=== PATIENT | female | born 1950 | race African-American/Black ===

== ENCOUNTER 2017-08-04 15:17 | Emergency (ER) | payer MEDICARE, MEDICAID ==
[~2017-08-04 15:17] MED LIST: Iopamidol 370 76% 100 ML VIAL ONE
[2017-08-04 16:11] LABS: Bacteria/HPF 4+ HPF (None Seen); Hyaline Casts/LPF 0-3 HYALINE CAST LPF (0-3 Hyaline); RBC/HPF None Seen HPF (0-3)
[2017-08-04 16:17] LABS: Bilirubin Negative (Negative); Blood, Urine Trace (Negative); Glucose, Urine (Dipstick) 250 mg/dL (Negative); Ketone, Urine Negative (Negative); Nitrite Positive (Negative); Protein, Urine (Dipstick) Trace mg/dL (Neg-Trace); Urobilinogen 0.2 mg/dL (0.2-1.0)
[2017-08-04 16:26] LABS: Yeast-All Forms None Seen HPF (None Seen)
[2017-08-04] MEDS ORDERED: Lidocaine Viscous Sol 2% 15 ml UD Cup ONE (16:41)
[2017-08-04] MEDS ORDERED: Mag-Al 1200 mg/1200 mg/30 ML UDCUP ONE (16:41)
[2017-08-04 17:35] LABS: #Eosinphils 0.2 thou/uL (0.0-0.7); #Lymphocytes 2.6 thou/uL (1.20-3.40); #Monocytes 0.5 thou/uL (0.11-0.59); #Neutrophils 4.7 thou/uL (1.40-6.50); %Basophils 0.3 % (0.0-1.0); %Eosinophils 2.1 % (0.0-10.0); %Lymphocytes 31.9 % (21.0-51.0); %Monocytes 6.8 % (0.0-10.0); Hematocrit 40.2 % (36.0-47.0); Mean Platelet Volume 7.8 fL (7.4-10.4); Red Blood Cell (RBC) Count 4.68 mill/uL (4.20-5.40)
[2017-08-04 18:00] LABS: ALT (SGPT) 11 U/L (8-55); AST (SGOT) 15 U/L (5-34); Alkaline Phosphatase 138 U/L (40-150); Anion Gap 12 mmol/L (10-20); BUN (Urea Nitrogen) 12 mg/dL (9.8-20.1); Bilirubin, Total 0.7 mg/dL (0.2-1.2); Calc. Creatinine Clearance 0 mL/min (70-130); Calcium 10.3 mg/dL (7.8-10.44); Carbon Dioxide 27 mmol/L (23-31); Chloride 98 mmol/L (98-107); Estimated GFR-MDRD 72; Globulin 4.4 g/dL (2.4-3.5); Lipase 152 U/L (8-78); Protein, Total 8.1 g/dL (6.0-8.3)
[2017-08-04 18:05] LABS: Troponin I 0.018 ng/mL (< 0.028)
--- NOTE | 2017-08-04 18:51 | CT ---
CT OF THE ABDOMEN AND PELVIS WITH IV CONTRAST 08/04/17 INDICATION: Abdominal pain. COMPARISON: Prior exam dated 07/17/16. FINDINGS: The gallbladder is surgically absent. The pancreas, adrenal glands, and kidneys appear within normal limits. Spleen is normal appearing. Th e bowel small bowel is nonobstructed. No free fluid is evident. The bladder, rectum, and perirectal s oft tissues are unremarkable. There is scattered diverticula involving the colon without reactive div erticulitis. There is scattered degenerative and osteoarthritic change. IMPRESSION: No definite acute abnormality seen. POS: [facility]
--- NOTE | 2017-08-31 13:26 | EKG ---
Test Reason : DIAGOSING PURPOSES Blood Pressure : / mmHG Vent. Rate : 087 BPM Atrial Rate : 087 BPM P-R Int : 000 ms QRS Dur : 088 ms QT Int : 376 ms P-R-T Axes : 036 022 071 degrees QTc Int : 452 ms Sinus rhythm with 1st degree A-V block with Premature supraventricular complexes Nonspecific ST and T wave abnormality Abnormal ECG Confirmed by BECKY ALEJANDRO ([id number]), pictures editor HERBERT WORKMAN ([id number]) on 08/31/2017 1:26:13 PM Referred By: Confirmed By:BECKY ALEJANDRO
== END 2017-08-04 19:47 | disposition home or self-care (01) ==
LOC: ERS 15:17
DX: R10.13 Epigastric pain (principal); R10.12 Left upper quadrant pain; R10.32 Left lower quadrant pain; I25.2 Old myocardial infarction; I11.0 Hypertensive heart disease with heart failure; I50.9 Heart failure, unspecified; E11.9 Type 2 diabetes mellitus without complications; E78.5 Hyperlipidemia, unspecified; Z87.891 Personal history of nicotine dependence; Z79.4 Long term (current) use of insulin; Z79.899 Other long term (current) drug therapy; Z79.82 Long term (current) use of aspirin
CPT/HCPCS: 36415; 74177; 80053; 81003; 81015; 82553; 83690; 84484; 85025; 87086; 93005; 96374; 96375; J0696

== ENCOUNTER 2017-09-21 05:04 | Emergency (ER) | payer MEDICARE, MEDICAID ==
[2017-09-21 06:07] LABS: #Eosinphils 0.1 thou/uL (0.0-0.7); #Lymphocytes 2.3 thou/uL (1.20-3.40); #Monocytes 0.7 thou/uL (0.11-0.59); #Neutrophils 5.1 thou/uL (1.40-6.50); %Basophils 0.2 % (0.0-1.0); %Eosinophils 1.6 % (0.0-10.0); %Lymphocytes 27.4 % (21.0-51.0); %Monocytes 8.6 % (0.0-10.0); %Neutrophils 62.2 % (42.0-75.0); Hemoglobin 10.7 g/dL (12.0-16.0); Mean Corpuscular HGB CONC 30.9 g/dL (32.0-36.0); Mean Corpuscular Hemoglobin 26.6 pg (27.0-31.0); Mean Corpuscular Volume 85.9 fl (81.0-99.0); Mean Platelet Volume 8.1 fL (7.4-10.4); Platelet Count 271 thou/uL (130-400); RBC Distribution Width 13.8 % (11.5-14.5); Red Blood Cell (RBC) Count 4.01 mill/uL (4.20-5.40); White Blood Cell (WBC) Count 8.2 thou/uL (4.8-10.8)
[2017-09-21] MEDS ORDERED: Meclizine HCl 25 MG TAB ONE (06:08)
[2017-09-21 06:42] LABS: ALT (SGPT) 10 U/L (8-55); AST (SGOT) 10 U/L (5-34); Albumin 3.7 g/dL (3.4-4.8); Alkaline Phosphatase 115 U/L (40-150); Anion Gap 14 mmol/L (10-20); BUN (Urea Nitrogen) 14 mg/dL (9.8-20.1); Bilirubin, Total 0.4 mg/dL (0.2-1.2); Calc. Creatinine Clearance 0 mL/min (70-130); Carbon Dioxide 28 mmol/L (23-31); Chloride 104 mmol/L (98-107); Estimated GFR-MDRD 81; Globulin 3.7 g/dL (2.4-3.5); Glucose 106 mg/dL (80-115); Potassium 3.6 mmol/L (3.5-5.1); Protein, Total 7.4 g/dL (6.0-8.3); Sodium 142 mmol/L (136-145)
[2017-09-21 06:45] LABS: CKMB 1.3 ng/mL (0-6.6); Troponin I 0.028 ng/mL (< 0.028)
== END 2017-09-21 07:36 | disposition home or self-care (01) ==
LOC: ERS 05:04
DX: I11.0 Hypertensive heart disease with heart failure (principal); I50.9 Heart failure, unspecified; H81.13 Benign paroxysmal vertigo, bilateral; I25.2 Old myocardial infarction; E11.9 Type 2 diabetes mellitus without complications; E78.5 Hyperlipidemia, unspecified; Z87.891 Personal history of nicotine dependence; Z79.82 Long term (current) use of aspirin; Z79.84 Long term (current) use of oral hypoglycemic drugs; Z79.899 Other long term (current) drug therapy
CPT/HCPCS: 36415; 36416; 80053; 82553; 83880; 84484; 85025; 93005

== ENCOUNTER 2017-10-15 13:53 | Outpatient (CLI) | payer MEDICARE, MEDICAID ==
--- NOTE | 2017-10-15 14:39 | RAD ---
CHEST TWO VIEWS: History: Fever. Wheezing. Comparison: 04-08-17 FINDINGS: Cardiac silhouette is enlarged. Pulmonary vasculature is engorged with bilateral perihilar infiltrate s. Mediastinum is midline with a single lead left subclavian cardiac defibrillator. No confluent airs pace consolidation, pneumothorax or pleural fluid is evident. IMPRESSION: Cardiomegaly with mild pulmonary vascular congestion. POS: [facility]
== END 2017-10-15 13:54 | disposition home or self-care (01) ==
LOC: RAD-FRANK 13:53
PROVIDERS: ATTEND Nurse Practitioner Family
DX: R50.9 Fever, unspecified (principal); I51.7 Cardiomegaly; R09.89 Other specified symptoms and signs involving the circulatory and respiratory systems
CPT/HCPCS: 71046

== ENCOUNTER 2017-10-19 18:54 | Emergency (ER) | payer MEDICARE, MEDICAID ==
[2017-10-19 19:52] LABS: #Basophils 0.1 thou/uL (0.0-0.2); #Eosinphils 0.2 thou/uL (0.0-0.7); #Lymphocytes 2.7 thou/uL (1.20-3.40); #Monocytes 0.6 thou/uL (0.11-0.59); %Basophils 0.9 % (0.0-1.0); %Eosinophils 2.1 % (0.0-10.0); %Monocytes 6.6 % (0.0-10.0); %Neutrophils 62.4 % (42.0-75.0); Mean Corpuscular Hemoglobin 27.7 pg (27.0-31.0); Mean Corpuscular Volume 86.6 fl (81.0-99.0); Mean Platelet Volume 8.7 fL (7.4-10.4); Platelet Count 279 thou/uL (130-400); RBC Distribution Width 13.9 % (11.5-14.5); Red Blood Cell (RBC) Count 4.33 mill/uL (4.20-5.40); White Blood Cell (WBC) Count 9.5 thou/uL (4.8-10.8)
[2017-10-19 20:14] LABS: ALT (SGPT) Less than 7 U/L (8-55); AST (SGOT) 12 U/L (5-34); Albumin 3.8 g/dL (3.4-4.8); Alkaline Phosphatase 103 U/L (40-150); Anion Gap 12 mmol/L (10-20); BUN (Urea Nitrogen) 22 mg/dL (9.8-20.1); Bilirubin, Total 0.4 mg/dL (0.2-1.2); CK (CPK) 265 U/L (29-168); Calc. Creatinine Clearance 0 mL/min (70-130); Calcium 9.8 mg/dL (7.8-10.44); Carbon Dioxide 29 mmol/L (23-31); Chloride 98 mmol/L (98-107); Estimated GFR-MDRD 59; Globulin 4.4 g/dL (2.4-3.5); Glucose 181 mg/dL (80-115); Lipase 26 U/L (8-78); Potassium 3.2 mmol/L (3.5-5.1); Protein, Total 8.2 g/dL (6.0-8.3); Sodium 136 mmol/L (136-145)
[2017-10-19 20:17] LABS: CKMB 0.8 ng/mL (0-6.6); Troponin I 0.022 ng/mL (< 0.028)
--- NOTE | 2017-10-19 20:29 | RAD ---
FRONTAL VIEW CHEST 10/19/17 COMPARISON: 10/15/17 INDICATION: Chest pain. FINDINGS: Enlarged cardiac silhouette present with pulmonary vascular congestion. No obvious effusion or discre te pneumothorax. Cardiac pacing device is again seen from a left subclavian approach. IMPRESSION: Prominent cardiac silhouette and pulmonary vasculature indicating CHF. Correlate clinically. POS: [facility]
[2017-10-19] MEDS ORDERED: Potassium Chloride 20 MEQ TAB ONE (21:03)
[2017-10-19] MEDS ORDERED: Diabetic Tussin 200 MG/10 ML UDCUP PO SCH (21:45)
--- NOTE | 2017-10-27 17:05 | EKG ---
Test Reason : Blood Pressure : / mmHG Vent. Rate : 088 BPM Atrial Rate : 088 BPM P-R Int : 224 ms QRS Dur : 090 ms QT Int : 402 ms P-R-T Axes : 043 048 122 degrees QTc Int : 486 ms Sinus rhythm with 1st degree A-V block with Premature atrial complexes with Abberant conduction Nonspecific ST and T wave abnormality Abnormal ECG Confirmed by SARWAT GARRETT D.O. ([id number]), avid editor HERBERT WORKMAN ([id number]) on 10/27/2017 5:04:17 PM Referred By: Confirmed By:SARWAT GARRETT D.O.
== END 2017-10-19 21:55 | disposition home or self-care (01) ==
LOC: ERS 18:54
DX: J40 Bronchitis, not specified as acute or chronic (principal); I25.2 Old myocardial infarction; E11.9 Type 2 diabetes mellitus without complications; E78.5 Hyperlipidemia, unspecified; I11.0 Hypertensive heart disease with heart failure; I50.9 Heart failure, unspecified; Z87.891 Personal history of nicotine dependence; Z79.82 Long term (current) use of aspirin; Z79.4 Long term (current) use of insulin; Z79.899 Other long term (current) drug therapy
CPT/HCPCS: 36415; 71045; 80053; 82553; 83690; 83880; 84484; 85025; 87804; 93005

== ENCOUNTER 2018-01-19 20:01 | Emergency (ER) | payer MEDICARE, MEDICAID ==
[2018-01-19] MEDS ORDERED: Ketorolac Tromethamine 30 MG/ML VIAL ONE (20:31)
== END 2018-01-19 20:36 | disposition home or self-care (01) ==
LOC: ERS 20:01
DX: M54.42 Lumbago with sciatica, left side (principal); M62.838 Other muscle spasm; I25.2 Old myocardial infarction; I11.0 Hypertensive heart disease with heart failure; I50.9 Heart failure, unspecified; E11.9 Type 2 diabetes mellitus without complications; E78.5 Hyperlipidemia, unspecified; Z87.891 Personal history of nicotine dependence; Z79.82 Long term (current) use of aspirin; Z79.4 Long term (current) use of insulin; Z79.899 Other long term (current) drug therapy
CPT/HCPCS: 96372; J1885

== ENCOUNTER 2018-06-12 19:24 | Inpatient (IN) | payer MEDICARE, MEDICAID ==
[~2018-06-12 19:24] MED LIST changes: +ISOVUE-370 76%-LOCM 1 ML ONE; -Iopamidol 370 76% 100 ML VIAL ONE
[2018-06-12 20:38] LABS: ALT (SGPT) 10 U/L (8-55); AST (SGOT) 15 U/L (5-34); Albumin 3.9 g/dL (3.4-4.8); Alkaline Phosphatase 115 U/L (40-150); Anion Gap 15 mmol/L (10-20); BUN (Urea Nitrogen) 21 mg/dL (9.8-20.1); Bilirubin, Total 0.6 mg/dL (0.2-1.2); CK (CPK) 110 U/L (29-168); Calc. Creatinine Clearance 0 mL/min (70-130); Calcium 9.6 mg/dL (7.8-10.44); Carbon Dioxide 24 mmol/L (23-31); Chloride 104 mmol/L (98-107); Estimated GFR-MDRD 51; Globulin 3.6 g/dL (2.4-3.5); Glucose 185 mg/dL (80-115); Lipase 29 U/L (8-78); Potassium 3.7 mmol/L (3.5-5.1); Protein, Total 7.5 g/dL (6.0-8.3); Sodium 139 mmol/L (136-145)
[2018-06-12 20:41] LABS: CKMB 1.5 ng/mL (0-6.6); Troponin I Less than 0.010 ng/mL (< 0.028)
--- NOTE | 2018-06-12 20:44 | RAD ---
PORTABLE CHEST ONE VIEW: 06/12/18 at 8:30 p.m. HISTORY: Dyspnea. FINDINGS: Comparison made with exam of 10/19/17. Left sided AICD remains in place. The heart is enlarged. There is pulmonary vascular congestion. No lobar consolidation, pneumothoraces or large effusions are seen. IMPRESSION: Mild CHF. POS: [facility]
[2018-06-12] MEDS ORDERED: Furosemide 40 MG/4 ML VIAL ONE (21:09)
[2018-06-12] MEDS ORDERED: Nitroglycerin 2% Ointment 1 INCH/1 GM Packet ONE (21:09)
--- NOTE | 2018-06-12 23:13 | CT ---
CTA CHEST WITH CONTRAST: 06/12/18 Multiple axial tomograms are obtained through the chest with IV enhancement following pulmonary angio protocol with multiplanar reconstructions and 3D postprocessing. INDICATIONS: Shortness of breath, dyspnea. FINDINGS: The pulmonary arteries show adequate enhancement. There is no evidence of pulmonary embolus. The lung cole are well aerated and clear. No infiltrate identified. The mediastinum unremarkable with no ad enopathy seen. Images through upper abdomen unremarkable. IMPRESSION: 1. No evidence of pulmonary embolus. 2. No acute lung process. POS: [facility]
[2018-06-13] MEDS ORDERED: Nitroglycerin 2% Ointment 1 INCH/1 GM Packet TOP SCH (00:30)
[2018-06-13 02:18] VITALS: BMI 46.6
[2018-06-13] MEDS ORDERED: Dextrose 50% Abboject 50 ML SYRINGE SLOW IVP PRN (02:59)
[2018-06-13] MEDS ORDERED: Acetaminophen 325 MG TAB PO PRN (02:59)
[2018-06-13] MEDS ORDERED: Dextrose 5% in Water 1,000 ML IV PRN (02:59)
[2018-06-13] MEDS ORDERED: Ondansetron HCl/PF 4 MG/2 ML Vial IVP PRN (02:59)
[2018-06-13 05:17] LABS: #Basophils 0.1 thou/uL (0.0-0.2); #Eosinphils 0.3 thou/uL (0.0-0.7); #Lymphocytes 3.1 thou/uL (1.20-3.40); #Monocytes 0.7 thou/uL (0.11-0.59); #Neutrophils 4.6 thou/uL (1.40-6.50); %Basophils 0.6 % (0.0-1.0); %Lymphocytes 35.6 % (21.0-51.0); %Monocytes 7.7 % (0.0-10.0); %Neutrophils 53.1 % (42.0-75.0); Hemoglobin 10.1 g/dL (12.0-16.0); Mean Corpuscular HGB CONC 31.7 g/dL (32.0-36.0); Mean Corpuscular Hemoglobin 26.8 pg (27.0-31.0); Mean Corpuscular Volume 84.6 fL (78.0-98.0); Mean Platelet Volume 9.5 fL (7.4-10.4); Platelet Count 231 thou/uL (130-400); RBC Distribution Width 15.3 % (11.5-14.5); Red Blood Cell (RBC) Count 3.78 mill/uL (4.20-5.40); White Blood Cell (WBC) Count 8.6 thou/uL (4.8-10.8)
[2018-06-13 05:33] LABS: Anion Gap 14 mmol/L (10-20); BUN (Urea Nitrogen) 20 mg/dL (9.8-20.1); Calc. Creatinine Clearance 86 mL/min (70-130); Calcium 9.7 mg/dL (7.8-10.44); Carbon Dioxide 24 mmol/L (23-31); Chloride 104 mmol/L (98-107); Estimated GFR-MDRD 56; Glucose 156 mg/dL (80-115); Potassium 3.3 mmol/L (3.5-5.1); Sodium 139 mmol/L (136-145)
[2018-06-13] MEDS: Furosemide 40 MG/4 ML VIAL SLOW IVP SCH ×2 (05:58→14:15)
[2018-06-13] MEDS ORDERED: hydrALAZINE 20 MG/ML VIAL SLOW IVP PRN (07:19)
[2018-06-13] MEDS ORDERED: Loratadine 10 MG TAB PO PRN (07:19)
[2018-06-13] MEDS ORDERED: Chloraseptic Spray 180 ml Bottle PO PRN (07:19)
[2018-06-13] MEDS ORDERED: Mag-Al 1200 mg/1200 mg/30 ML UDCUP PO PRN (07:19)
[2018-06-13] MEDS ORDERED: Artificial Tears 18 DROP/0.9 ML EA EYE PRN (07:19)
[2018-06-13] MEDS ORDERED: Sodium Chloride 0.65% Nasal 44 ML BOT EA NARE PRN (07:19)
[2018-06-13] MEDS ORDERED: Temazepam 15 MG CAP PO PRN (07:19)
[2018-06-13] MEDS ORDERED: Eucerin (Mineral Oil/Petrolatum,White) 30 gm Jar TOP PRN (07:19)
[2018-06-13] MEDS ORDERED: Milk Of Magnesia 30 ML UDCUP PO PRN (07:19)
[2018-06-13] MEDS ORDERED: Ondansetron ODT 4 MG TAB PO PRN (07:19)
[2018-06-13] MEDS ORDERED: Loperamide HCl 2 MG CAP PO PRN (07:19)
[2018-06-13] MEDS ORDERED: Senokot 8.6 MG TAB PO PRN (07:19)
[2018-06-13] MEDS ORDERED: Diabetic Tussin 200 MG/10 ML UDCUP PO PRN (07:19)
[2018-06-13] MEDS ORDERED: HYDROcodone/Acetaminophen 5/325 mg Tablet PO PRN (07:19)
[2018-06-13] MEDS ORDERED: Nitroglycerin 0.4 MG TAB (25 Tab Bottle) SL PRN (07:19)
--- NOTE | 2018-06-13 07:40 | HP ---
PRIMARY CARE PHYSICIAN: Fadumo and Yakelin. CODE STATUS: FULL CODE. TIME OF EVALUATION: 11:55 p.m. CHIEF COMPLAINT: Congestion and shortness of breath. HISTORY OF PRESENT ILLNESS: This is a 67-year-old female patient with past medical history of pacema ker, coronary artery disease status post [place], congestive heart failure, diabetes, hyperlipidemia. The patient came to the hospital after having an episode of shortness of breath that has been gradually getting worse over the past 2 weeks reported as moderate, there is shortness of breath and gets worse with exertion, and improved with resting. The patient reported having some episode of PND overnight . The patient also has associated lower extremity edema. REVIEW OF SYSTEMS: CONSTITUTIONAL: No fever or chills or generalized weakness. RESPIRATORY: No cough, patient has shortness of breath. No sputum production. CARDIOVASCULAR: No chest pain or palpitations. GASTROINTESTINAL: No nausea, no vomiting, diarrhea or abdominal pain. 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 GENITOURINARY: No burning with urination. EXTREMITIES: The patient has bilateral leg swelling. All other systems were reviewed and negative except for the findings mentioned above. PAST MEDICAL HISTORY: As mentioned in the HPI. PAST SURGICAL HISTORY: 1. Excision of lymph nodes in the neck 2. Cholecystectomy. 3. Hysterectomy. PSYCHIATRIC HISTORY: No previous psychiatric history. SOCIAL HISTORY: Former tobacco smoker, quit more than 10 years ago. No drugs. Lives at home with odessa andrade. FAMILY HISTORY: Reviewed and noncontributory for this admission. ALLERGIES: WATERMELON. MEDICATIONS: Spironolactone, potassium chloride, torsemide, Meloxicam, glimepiride, Crestor. PHYSICAL EXAMINATION: VITAL SIGNS: On presentation, blood pressure 126/65 with heart rate 71, respiratory rate was 20, tem perature 97.9, oxygen saturation 98. GENERAL APPEARANCE: She is alert with generalized weakness. No acute distress. HEENT: Eyes; normal conjunctivae. Moist oral mucosa. Anicteric. NECK: No JVD. RESPIRATORY: Bilateral air entry. Some crackles bilaterally, no wheezing. Symmetric expansion. CARDIOVASCULAR: Normal rate, regular rhythm. No murmurs, no gallop. Bilateral leg edema. ABDOMEN: Soft, normal bowel sounds. MUSCULOSKELETAL: Baseline range of motion and strength. No tenderness. SKIN: Warm and intact, no pallor, no rash, no redness except for atrophic changes bilateral lower ex tremity due to chronic lymphedema. Peripheral pulses are present. Capillary refill seems to be inta ct. NEUROLOGIC: Baseline sensory. No evidence of any new focal weakness. PSYCHIATRIC: The patient is in good mood. No anxiety. Optimal judgment. EKG was discussed with performing physician from ER. The patient has normal sinus rhythm with a rate of 67 with low voltage QRS and prolonged QT. No specific ST-T wave changes. Chest x-ray: Pulmonar y congestion, AICD was seen in place. CT angio was done due to positive D-dimer and was negative for PE. LABORATORY: White count 8.6, hemoglobin 10.1, platelet count 231. D-dimer 0.9, sodium 139, potassiu m 3.3, chloride 104, carbon dioxide 24, anion gap 14, BUN 20, creatinine 1.17, glucose 185, came down to 156. Beta natriuretic peptide 1208. Lipase 29. ASSESSMENT AND PLAN: The patient will be placed in the hospital for the following medical problems: 1. Congestive heart failure exacerbation. The patient has beta natriuretic peptide 1208, bilateral leg edema, exertional dyspnea and episodes of paroxysmal nocturnal dyspnea overnight, the patient roc l receive diuresis, reconcile home medications. Monitor on tele. 2. Positive D-dimer, this is unclear why it is high, the CT angio was negative for any pulmonary emb olism. 3. Chronic kidney disease. It is stage 3 with GFR of 51, will monitor kidney function. We will adj ust treatment as needed. Might be cardiorenal, the patient will need diuresis. 4. Chronic normocytic anemia with hemoglobin 10.0, previously 12, will monitor. No need for acute i ntervention at this point. 5. Controlled diabetes, we will reconcile home meds, sliding scale for optimal control. 6. Uncontrolled high blood pressure with recorded systolic blood pressure 151 in our records, will r econcile home meds, will adjust treatment as needed. 7. History of coronary artery disease. We will reconcile medications, this problem seems to be stab le at this time. . 8. Hyperlipidemia, reconcile home meds, low cholesterol diet is advised. 9. Deep venous thrombosis prophylaxis.
[2018-06-13] MEDS ORDERED: Meloxicam 15 MG TAB PO SCH (09:00)
[2018-06-13] MEDS ORDERED: Potassium Chloride 20 MEQ TAB PO SCH (09:00)
[2018-06-13] MEDS ORDERED: Prevnar 13-Val Conj/PF 0.5 ML SYRINGE IM ONE (09:00)
[2018-06-13] MEDS ORDERED: Torsemide 20 MG TAB PO SCH (09:00)
--- NOTE | 2018-06-13 09:28 | PDOC.PN ---
- Subjective Encounter Start Date: 06/13/18 Encounter Start Time: 07:20 Patient seen and examined. less dyspnea, feels better now, No overnight events - Objective Resuscitation Status: Resuscitation Status FULL:Full Resuscitation MAR Reviewed: Yes Vital Signs & Weight: Vital Signs (12 hours) Temp Pulse Resp BP BP BP Pulse Ox 06/13/18 07:20 97.9 F 57 L 14 126/61 97 06/13/18 04:00 97.8 F 71 22 H 125/61 93 L 06/13/18 00:35 96.5 F L 67 20 139/66 99 Weight Weight 255 lb 3.2 oz I&O: 06/12/18 06/13/18 06/14/18 06:59 06:59 06:59 Intake Total 0 Output Total 700 Balance -700 Result Diagrams: 06/13/18 04:44 06/13/18 04:44 Additional Labs: Accuchecks 06/13/18 05:51 POC Glucose 161 H Radiology Reviewed by me: Yes (chest xray, CT angio reviewed) EKG Reviewed by me: Yes Phys Exam - Physical Examination Constitutional: NAD HEENT: PERRLA, moist MMs, sclera anicteric Neck: no JVD, supple Respiratory: no wheezing, no rhonchi few basal rales+ Cardiovascular: RRR, no significant murmur, no rub Gastrointestinal: soft, non-tender, no distention, positive bowel sounds obesity+ Musculoskeletal: pulses present, edema present chronic skin changes both leg Neurological: non-focal, normal sensation, moves all 4 limbs Lymphatic: no nodes Psychiatric: normal affect, A&O x 3 Skin: normal turgor Dx/Plan (1) Acute on chronic systolic ACC/AHA stage C congestive heart failure Code(s): I50.23 - ACUTE ON CHRONIC SYSTOLIC (CONGESTIVE) HEART FAILURE Status : Acute Comment: EF 20-15% (2) Anemia, normocytic normochromic Code(s): D64.9 - ANEMIA, UNSPECIFIED Status: Chronic (3) CAD (coronary artery disease) Code(s): I25.10 - ATHSCL HEART DISEASE OF [place] CORONARY ARTERY W/O ANG PCTRS Status: Chronic Comment: (4) Cardiomyopathy Code(s): I42.9 - CARDIOMYOPATHY, UNSPECIFIED Status: Chronic Qualifiers: Cardiomyopathy type: ischemic Qualified Code(s): I25.5 - Ischemic cardiomyopathy Comment: AICD in place (5) DM type 2 (diabetes mellitus, type 2) Status: Chronic Qualifiers: Diabetes mellitus complication status: with hyperglycemia Comment: (6) HTN (hypertension) Code(s): I10 - ESSENTIAL (PRIMARY) HYPERTENSION Status: Chronic Comment: (7) Hyperlipidemia Code(s): E78.5 - HYPERLIPIDEMIA, UNSPECIFIED Status: Chronic (8) Morbid obesity with BMI of 45.0-49.9, adult Code(s): E66.01 - MORBID (SEVERE) OBESITY DUE TO EXCESS CALORIES; Z68.42 - BODY MASS INDEX (BMI) 45.0-49.9, ADULT Status: Chronic - Plan cont current plan of care * continue diuresis * replace potassium * monitor weight and I/O, daily labs * medication reviewed as below * symptomatic treatment. Review of Systems - Review of Systems Constitutional: negative: fever, chills, sweats, weakness, malaise, other Eyes: negative: Pain, Vision Change, Conjunctivae Inflammation, Eyelid Inflammation, Redness, Other Respiratory: SOB with Excertion. negative: Cough, Dry, Shortness of Breath, Hemoptysis, Pleuritic Pain, Sputum, Wheezing Cardiovascular: orthopnea, edema. negative: chest pain, palpitations, paroxysmal nocturnal dyspnea, light headedness, other Gastrointestinal: negative: Nausea, Vomiting, Abdominal Pain, Diarrhea, Constipation, Melena, Hematochezia, Other Genitourinary: negative: Dysuria, Frequency, Incontinence, Hematuria, Retention , Other Musculoskeletal: negative: Neck Pain, Shoulder Pain, Arm Pain, Back Pain, Hand Pain, Leg Pain, Foot Pain, Other Skin: negative: Rash, Lesions, Maxi, Bruising, Other - Medications/Allergies Allergies/Adverse Reactions: Allergies Allergy/AdvReac Type Severity Reaction Status Date / Time melon Allergy Verified 06/13/18 00:48 watermelon Allergy Verified 06/13/18 00:48 Medications: Current Medications Acetaminophen (Tylenol) 650 mg PO Q4H PRN PRN Reason: Headache/Fever/Mild Pain (1-3) Hydrocodone Bitart/Acetaminophen ([place] 5/325) 1 tab PO Q4H PRN PRN Reason: Moderate Pain (4-6) Al Hydroxide/Mg Hydroxide (Maalox) 15 ml PO Q4H PRN PRN Reason: Heartburn or Indigestion Artificial Tears (Tears Naturale) 0 drop EA EYE PRN PRN PRN Reason: Dry Eyes Aspirin (Ecotrin) 81 mg PO DAILY [facility] Carvedilol (Coreg) 25 mg PO BID [facility] Dextrose/Water (Dextrose 50%) 25 gm SLOW IVP PRN PRN PRN Reason: Hypoglycemia Enoxaparin Sodium (Lovenox) 40 mg SC 0900 [facility] Famotidine (Pepcid) 20 mg PO BID [facility] Furosemide (Lasix) 40 mg SLOW IVP 0600,1400 [facility] Stop: 06/17/18 11:00 Last Admin: 06/13/18 05:58 Dose: 40 mg Glucagon (Glucagon) 1 mg IM PRN PRN PRN Reason: Hypoglycemia Guaifenesin (Robitussin Sf) 200 mg PO Q4H PRN PRN Reason: Cough Hydralazine HCl (Apresoline) 10 mg SLOW IVP Q4H PRN PRN Reason: Systolic BP > 180 Dextrose/Water (D5w) 1,000 mls @ 0 mls/hr IV .Q0M PRN PRN Reason: Hypoglycemia Insulin Human Isoph/Insulin Regular (Humulin 70/30) 30 units SC QPM [facility] Insulin Human Isoph/Insulin Regular (Humulin 70/30) 30 units SC QAM [facility] Insulin Human Lispro (Humalog) 0 units SC .MILD SLIDING SCALE PRN PRN Reason: Mild Correctional Scale Lisinopril (Zestril) 20 mg PO DAILY [facility] Loperamide HCl (Imodium) 2 mg PO PRN PRN PRN Reason: Diarrhea/Loose Stools Loratadine (Claritin) 10 mg PO DAILYPRN PRN PRN Reason: Sinus Symptoms Magnesium Hydroxide (Milk Of Magnesium) 30 ml PO DAILYPRN PRN PRN Reason: Constipation Mineral Oil/White Petrolatum (Eucerin Cream) 0 gm TOP BIDPRN PRN PRN Reason: Dry Skin Nitroglycerin (Nitrostat) 0.4 mg SL Q5MIN PRN PRN Reason: Chest Pain Ondansetron HCl (Zofran) 4 mg IVP Q6H PRN PRN Reason: Nausea/Vomiting Ondansetron HCl (Zofran Odt) 4 mg PO Q6H PRN PRN Reason: Nausea/Vomiting Phenol (Chloraseptic [place] 180 Ml Bot) 0 ml PO PRN PRN PRN Reason: Sore Throat Potassium Chloride (Klor-Con 10) 10 meq PO BID-[facility] Potassium Chloride (K-Dur) 40 meq PO NOW [facility] Stop: 06/13/18 12:00 Rosuvastatin Calcium (Crestor) 40 mg PO DAILY [facility] Senna (Senokot) 2 tab PO HSPRN PRN PRN Reason: Constipation Sodium Chloride (Flush - Normal Saline) 10 ml IVF PRN PRN PRN Reason: Saline Flush Sodium Chloride ([place] Nasal [place] 0.65%) 0 ml EA NARE QIDPRN PRN PRN Reason: Nasal Congestion Spironolactone (Aldactone) 25 mg PO DAILY [facility] Temazepam (Restoril) 15 mg PO HSPRN PRN PRN Reason: Insomnia
[2018-06-13] MEDS: Insulin NPH/Reg Insulin Hm 300 UNITS/3 ML VIAL SC SCH ×2 (09:32→21:58)
[2018-06-13] MEDS: Lisinopril 20 MG TAB PO SCH (09:37)
[2018-06-13] MEDS: Rosuvastatin 20 MG TAB PO SCH (09:37)
[2018-06-13] MEDS: Enoxaparin Sodium 40 MG/0.4 ML SYRINGE SC SCH (09:40)
[2018-06-13] MEDS: Carvedilol 25 MG TAB PO SCH ×2 (09:40→21:54)
[2018-06-13] MEDS: Spironolactone 25 MG TAB PO SCH (09:40)
[2018-06-13] MEDS: Aspirin 81 mg Enteric Coated Tablet PO SCH (09:40)
[2018-06-13] MEDS: Famotidine 20 MG TAB PO SCH ×2 (09:40→21:58)
[2018-06-13] MEDS: Potassium Chloride 10 MEQ TAB PO SCH ×2 (09:40→17:05)
[2018-06-13] MEDS: HumaLOG 300 UNITS/3 ML VIAL SC PRN ×2 (11:42→17:05)
[2018-06-14] MEDS: Aspirin 81 mg Enteric Coated Tablet PO SCH (11:30)
[2018-06-14] MEDS: Furosemide 40 MG/4 ML VIAL SLOW IVP SCH (11:30)
[2018-06-14] MEDS: Famotidine 20 MG TAB PO SCH ×2 (11:31→20:38)
[2018-06-14] MEDS: Insulin NPH/Reg Insulin Hm 300 UNITS/3 ML VIAL SC SCH ×2 (11:31→20:41)
[2018-06-14] MEDS: Lisinopril 20 MG TAB PO SCH (11:31)
[2018-06-14] MEDS: Rosuvastatin 20 MG TAB PO SCH (11:31)
[2018-06-14] MEDS: Carvedilol 25 MG TAB PO SCH ×2 (11:31→20:39)
[2018-06-14] MEDS: Spironolactone 25 MG TAB PO SCH (11:32)
[2018-06-14] MEDS: Potassium Chloride 10 MEQ TAB PO SCH ×2 (11:33→18:08)
[2018-06-14] MEDS: Enoxaparin Sodium 40 MG/0.4 ML SYRINGE SC SCH (11:33)
[2018-06-14 12:33] LABS: Anion Gap 13 mmol/L (10-20); BUN (Urea Nitrogen) 22 mg/dL (9.8-20.1); Calc. Creatinine Clearance 79 mL/min (70-130); Calcium 9.7 mg/dL (7.8-10.44); Carbon Dioxide 27 mmol/L (23-31); Chloride 104 mmol/L (98-107); Estimated GFR-MDRD 50; Glucose 62 mg/dL (80-115); Potassium 3.4 mmol/L (3.5-5.1); Sodium 141 mmol/L (136-145); Uric Acid 7.9 mg/dL (2.6-6.0)
--- NOTE | 2018-06-14 14:41 | PDOC.PN ---
- Subjective Encounter Start Date: 06/14/18 Encounter Start Time: 08:30 -: old records requested/rev Patient seen and examined. No new complaints. No overnight events - Objective Resuscitation Status: Resuscitation Status FULL:Full Resuscitation MAR Reviewed: Yes Vital Signs & Weight: Vital Signs (12 hours) Temp Pulse Pulse Pulse Resp BP BP 06/14/18 11:35 98 F 60 18 06/14/18 11:31 134/68 06/14/18 10:59 65 83 134/63 BP BP Pulse Ox Pulse Ox Pulse Ox 06/14/18 11:35 119/58 L 98 06/14/18 11:31 06/14/18 10:59 134/64 96 97 Weight Weight 255 lb 3.2 oz I&O: 06/13/18 06/14/18 06/15/18 06:59 06:59 06:59 Intake Total 0 1120 Output Total 700 1700 Balance -700 -580 Result Diagrams: 06/13/18 04:44 06/14/18 05:13 Additional Labs: Accuchecks 06/13/18 06/13/18 20:18 16:09 POC Glucose 134 H 161 H EKG Reviewed by me: Yes Phys Exam - Physical Examination Constitutional: NAD HEENT: PERRLA, moist MMs, sclera anicteric Neck: no JVD, supple Respiratory: no wheezing, no rales, no rhonchi Cardiovascular: RRR, no significant murmur, no rub Gastrointestinal: soft, non-tender, no distention, positive bowel sounds Musculoskeletal: pulses present, edema present Neurological: non-focal, normal sensation, moves all 4 limbs Psychiatric: normal affect, A&O x 3 Skin: no rash, normal turgor Dx/Plan (1) Acute on chronic systolic ACC/AHA stage C congestive heart failure Code(s): I50.23 - ACUTE ON CHRONIC SYSTOLIC (CONGESTIVE) HEART FAILURE Status : Acute Comment: EF 20-15% (2) Anemia, normocytic normochromic Code(s): D64.9 - ANEMIA, UNSPECIFIED Status: Chronic (3) CAD (coronary artery disease) Code(s): I25.10 - ATHSCL HEART DISEASE OF [place] CORONARY ARTERY W/O ANG PCTRS Status: Chronic Comment: (4) Cardiomyopathy Code(s): I42.9 - CARDIOMYOPATHY, UNSPECIFIED Status: Chronic Qualifiers: Cardiomyopathy type: ischemic Qualified Code(s): I25.5 - Ischemic cardiomyopathy Comment: AICD in place (5) DM type 2 (diabetes mellitus, type 2) Status: Chronic Qualifiers: Diabetes mellitus complication status: with hyperglycemia Comment: (6) HTN (hypertension) Code(s): I10 - ESSENTIAL (PRIMARY) HYPERTENSION Status: Chronic Comment: (7) Hyperlipidemia Code(s): E78.5 - HYPERLIPIDEMIA, UNSPECIFIED Status: Chronic (8) Morbid obesity with BMI of 45.0-49.9, adult Code(s): E66.01 - MORBID (SEVERE) OBESITY DUE TO EXCESS CALORIES; Z68.42 - BODY MASS INDEX (BMI) 45.0-49.9, ADULT Status: Chronic (9) Hypokalemia Code(s): E87.6 - HYPOKALEMIA Status: Acute - Plan cont current plan of care * replace potassium * reduce lasix 40 mg IV daily * echo pending result * medication reviewed as below * symptomatic treatment * expecting discharge tomorrow * will arrange home health on discharge. Review of Systems - Review of Systems Eyes: negative: Pain, Vision Change, Conjunctivae Inflammation, Eyelid Inflammation, Redness, Other ENT: negative: Ear Pain, Ear Discharge, Nose Pain, Nose Discharge, Nose Congestion, Mouth Pain, Mouth Swelling, Throat Pain, Throat Swelling, Other Respiratory: negative: Cough, Dry, Shortness of Breath, Hemoptysis, SOB with Excertion, Pleuritic Pain, Sputum, Wheezing Cardiovascular: edema. negative: chest pain, palpitations, orthopnea, paroxysmal nocturnal dyspnea, light headedness, other Gastrointestinal: negative: Nausea, Vomiting, Abdominal Pain, Diarrhea, Constipation, Melena, Hematochezia, Other Genitourinary: negative: Dysuria, Frequency, Incontinence, Hematuria, Retention , Other Musculoskeletal: negative: Neck Pain, Shoulder Pain, Arm Pain, Back Pain, Hand Pain, Leg Pain, Foot Pain, Other Skin: negative: Rash, Lesions, Maxi, Bruising, Other - Medications/Allergies Allergies/Adverse Reactions: Allergies Allergy/AdvReac Type Severity Reaction Status Date / Time melon Allergy Verified 06/13/18 00:48 watermelon Allergy Verified 06/13/18 00:48 Medications: Current Medications Acetaminophen (Tylenol) 650 mg PO Q4H PRN PRN Reason: Headache/Fever/Mild Pain (1-3) Hydrocodone Bitart/Acetaminophen ([place] 5/325) 1 tab PO Q4H PRN PRN Reason: Moderate Pain (4-6) Al Hydroxide/Mg Hydroxide (Maalox) 15 ml PO Q4H PRN PRN Reason: Heartburn or Indigestion Artificial Tears (Tears Naturale) 0 drop EA EYE PRN PRN PRN Reason: Dry Eyes Aspirin (Ecotrin) 81 mg PO DAILY [facility] Last Admin: 06/14/18 11:30 Dose: Not Given Carvedilol (Coreg) 25 mg PO BID [facility] Last Admin: 06/14/18 11:31 Dose: Not Given Dextrose/Water (Dextrose 50%) 25 gm SLOW IVP PRN PRN PRN Reason: Hypoglycemia Enoxaparin Sodium (Lovenox) 40 mg SC 0900 [facility] Last Admin: 06/14/18 11:33 Dose: 40 mg Famotidine (Pepcid) 20 mg PO BID [facility] Last Admin: 06/14/18 11:31 Dose: Not Given Furosemide (Lasix) 40 mg SLOW IVP 0600,1400 [facility] Stop: 06/17/18 11:00 Last Admin: 06/14/18 11:30 Dose: Not Given Glucagon (Glucagon) 1 mg IM PRN PRN PRN Reason: Hypoglycemia Guaifenesin (Robitussin Sf) 200 mg PO Q4H PRN PRN Reason: Cough Hydralazine HCl (Apresoline) 10 mg SLOW IVP Q4H PRN PRN Reason: Systolic BP > 180 Dextrose/Water (D5w) 1,000 mls @ 0 mls/hr IV .Q0M PRN PRN Reason: Hypoglycemia Insulin Human Isoph/Insulin Regular (Humulin 70/30) 30 units SC QPM [facility] Last Admin: 06/13/18 21:58 Dose: 30 unit Insulin Human Isoph/Insulin Regular (Humulin 70/30) 30 units SC QAM [facility] Last Admin: 06/14/18 11:31 Dose: Not Given Insulin Human Lispro (Humalog) 0 units SC .MILD SLIDING SCALE PRN PRN Reason: Mild Correctional Scale Last Admin: 06/13/18 17:05 Dose: 2 unit Lisinopril (Zestril) 20 mg PO DAILY [facility] Last Admin: 06/14/18 11:31 Dose: Not Given Loperamide HCl (Imodium) 2 mg PO PRN PRN PRN Reason: Diarrhea/Loose Stools Loratadine (Claritin) 10 mg PO DAILYPRN PRN PRN Reason: Sinus Symptoms Magnesium Hydroxide (Milk Of Magnesium) 30 ml PO DAILYPRN PRN PRN Reason: Constipation Mineral Oil/White Petrolatum (Eucerin Cream) 0 gm TOP BIDPRN PRN PRN Reason: Dry Skin Nitroglycerin (Nitrostat) 0.4 mg SL Q5MIN PRN PRN Reason: Chest Pain Ondansetron HCl (Zofran) 4 mg IVP Q6H PRN PRN Reason: Nausea/Vomiting Ondansetron HCl (Zofran Odt) 4 mg PO Q6H PRN PRN Reason: Nausea/Vomiting Phenol (Chloraseptic [place] 180 Ml Bot) 0 ml PO PRN PRN PRN Reason: Sore Throat Potassium Chloride (Klor-Con 10) 10 meq PO BID-[facility] Last Admin: 06/14/18 11:33 Dose: 10 meq Rosuvastatin Calcium (Crestor) 40 mg PO DAILY [facility] Last Admin: 06/14/18 11:31 Dose: Not Given Senna (Senokot) 2 tab PO HSPRN PRN PRN Reason: Constipation Sodium Chloride (Flush - Normal Saline) 10 ml IVF PRN PRN PRN Reason: Saline Flush Last Admin: 06/13/18 09:41 Dose: 10 ml Sodium Chloride ([place] Nasal [place] 0.65%) 0 ml EA NARE QIDPRN PRN PRN Reason: Nasal Congestion Spironolactone (Aldactone) 25 mg PO DAILY [facility] Last Admin: 06/14/18 11:32 Dose: Not Given Temazepam (Restoril) 15 mg PO HSPRN PRN PRN Reason: Insomnia
[2018-06-14] MEDS ORDERED: Potassium Chloride 20 MEQ TAB PO SCH (15:00)
[2018-06-14] MEDS: HumaLOG 300 UNITS/3 ML VIAL SC PRN (18:08)
[2018-06-15 06:35] LABS: Anion Gap 13 mmol/L (10-20); BUN (Urea Nitrogen) 18 mg/dL (9.8-20.1); Calc. Creatinine Clearance 81 mL/min (70-130); Calcium 9.6 mg/dL (7.8-10.44); Carbon Dioxide 29 mmol/L (23-31); Chloride 103 mmol/L (98-107); Estimated GFR-MDRD 52; Magnesium 1.9 mg/dL (1.6-2.6); Potassium 3.8 mmol/L (3.5-5.1); Sodium 141 mmol/L (136-145)
[2018-06-15 06:41] LABS: Glucose 58 mg/dL (80-115)
[2018-06-15] MEDS: Potassium Chloride 10 MEQ TAB PO SCH ×2 (08:46→16:02)
[2018-06-15] MEDS: Famotidine 20 MG TAB PO SCH ×2 (08:46→20:18)
[2018-06-15] MEDS: Carvedilol 25 MG TAB PO SCH ×2 (08:46→20:18)
[2018-06-15] MEDS: Aspirin 81 mg Enteric Coated Tablet PO SCH (08:46)
[2018-06-15] MEDS: Insulin NPH/Reg Insulin Hm 300 UNITS/3 ML VIAL SC SCH ×2 (08:47→20:21)
[2018-06-15] MEDS: Enoxaparin Sodium 40 MG/0.4 ML SYRINGE SC SCH (08:47)
[2018-06-15] MEDS: Lisinopril 20 MG TAB PO SCH (08:48)
[2018-06-15] MEDS: Spironolactone 25 MG TAB PO SCH (08:48)
[2018-06-15] MEDS: Rosuvastatin 20 MG TAB PO SCH (08:48)
[2018-06-15] MEDS ORDERED: Furosemide 40 MG/4 ML VIAL SLOW IVP SCH (09:00)
--- NOTE | 2018-06-15 15:51 | PDOC.PN ---
- Subjective Encounter Start Date: 06/15/18 Encounter Start Time: 10:30 Subjective: pt up in bed sleeping - Objective Resuscitation Status: Resuscitation Status FULL:Full Resuscitation Vital Signs & Weight: Vital Signs (12 hours) Temp Pulse Pulse Pulse Resp BP BP 06/15/18 13:08 62 63 107/53 L 109/59 L 06/15/18 11:01 97.9 F 57 L 16 06/15/18 07:45 97.6 F 60 16 06/15/18 04:00 97.9 F 70 16 BP BP Pulse Ox Pulse Ox Pulse Ox 06/15/18 13:08 97 97 06/15/18 11:01 103/55 L 97 06/15/18 07:45 120/74 98 06/15/18 04:00 104/56 L 94 L Weight Weight 255 lb I&O: 06/14/18 06/15/18 06/16/18 06:59 06:59 06:59 Intake Total 1120 810 Output Total 1700 1400 Balance -580 -590 Result Diagrams: 06/13/18 04:44 06/15/18 05:42 Additional Labs: Accuchecks 06/15/18 06/15/18 06/14/18 11:27 06:44 19:57 POC Glucose 93 76 242 H 06/14/18 06/14/18 06/14/18 17:00 10:39 06:00 POC Glucose 226 H 227 H 88 06/14/18 01:46 POC Glucose 80 Phys Exam - Physical Examination Neck: no nodes, no JVD, supple, full ROM Respiratory: no wheezing, no rales, no rhonchi, wheezing present, clear to auscultation bilateral Cardiovascular: RRR, no significant murmur, no rub, gallop, irregular Gastrointestinal: soft, non-tender, no distention, positive bowel sounds Dx/Plan (1) Acute on chronic systolic ACC/AHA stage C congestive heart failure Code(s): I50.23 - ACUTE ON CHRONIC SYSTOLIC (CONGESTIVE) HEART FAILURE Status : Acute Comment: EF 20-15% (2) CAD (coronary artery disease) Code(s): I25.10 - ATHSCL HEART DISEASE OF [place] CORONARY ARTERY W/O ANG PCTRS Status: Chronic Comment: (3) HTN (hypertension) Code(s): I10 - ESSENTIAL (PRIMARY) HYPERTENSION Status: Chronic Comment: (4) DM type 2 (diabetes mellitus, type 2) Status: Chronic Qualifiers: Diabetes mellitus complication status: with hyperglycemia Comment: - Plan pt's echo indicated similar ef -: pt was hypoglycemic will decrease his nph -: will check labs in am and possible discharge in am * . Review of Systems - Review of Systems Respiratory: negative: Cough, Dry, Shortness of Breath, Hemoptysis, SOB with Excertion, Pleuritic Pain, Sputum, Wheezing Cardiovascular: negative: chest pain, palpitations, orthopnea, paroxysmal nocturnal dyspnea, edema, light headedness, other Gastrointestinal: negative: Nausea, Vomiting, Abdominal Pain, Diarrhea, Constipation, Melena, Hematochezia, Other Genitourinary: negative: Dysuria, Frequency, Incontinence, Hematuria, Retention , Other - Medications/Allergies Allergies/Adverse Reactions: Allergies Allergy/AdvReac Type Severity Reaction Status Date / Time melon Allergy Verified 06/13/18 00:48 watermelon Allergy Verified 06/13/18 00:48 Medications: Current Medications Acetaminophen (Tylenol) 650 mg PO Q4H PRN PRN Reason: Headache/Fever/Mild Pain (1-3) Hydrocodone Bitart/Acetaminophen (Clear 5/325) 1 tab PO Q4H PRN PRN Reason: Moderate Pain (4-6) Al Hydroxide/Mg Hydroxide (Maalox) 15 ml PO Q4H PRN PRN Reason: Heartburn or Indigestion Artificial Tears (Tears Naturale) 0 drop EA EYE PRN PRN PRN Reason: Dry Eyes Aspirin (Ecotrin) 81 mg PO DAILY [facility] Last Admin: 06/15/18 08:46 Dose: 81 mg Carvedilol (Coreg) 25 mg PO BID [facility] Last Admin: 06/15/18 08:46 Dose: 25 mg Dextrose/Water (Dextrose 50%) 25 gm SLOW IVP PRN PRN PRN Reason: Hypoglycemia Enoxaparin Sodium (Lovenox) 40 mg SC 0900 [facility] Last Admin: 06/15/18 08:47 Dose: 40 mg Famotidine (Pepcid) 20 mg PO BID [facility] Last Admin: 06/15/18 08:46 Dose: 20 mg Furosemide (Lasix) 40 mg SLOW IVP DAILY [facility] Last Admin: 06/15/18 08:47 Dose: 40 mg Glucagon (Glucagon) 1 mg IM PRN PRN PRN Reason: Hypoglycemia Guaifenesin (Robitussin Sf) 200 mg PO Q4H PRN PRN Reason: Cough Hydralazine HCl (Apresoline) 10 mg SLOW IVP Q4H PRN PRN Reason: Systolic BP > 180 Dextrose/Water (D5w) 1,000 mls @ 0 mls/hr IV .Q0M PRN PRN Reason: Hypoglycemia Insulin Human Isoph/Insulin Regular (Humulin 70/30) 30 units SC QAM [facility] Last Admin: 06/15/18 08:47 Dose: 30 unit Insulin Human Isoph/Insulin Regular (Humulin 70/30) 15 units SC QPM [facility] Insulin Human Lispro (Humalog) 0 units SC .MILD SLIDING SCALE PRN PRN Reason: Mild Correctional Scale Last Admin: 06/14/18 18:08 Dose: 3 unit Lisinopril (Zestril) 20 mg PO DAILY [facility] Last Admin: 06/15/18 08:48 Dose: 20 mg Loperamide HCl (Imodium) 2 mg PO PRN PRN PRN Reason: Diarrhea/Loose Stools Loratadine (Claritin) 10 mg PO DAILYPRN PRN PRN Reason: Sinus Symptoms Magnesium Hydroxide (Milk Of Magnesium) 30 ml PO DAILYPRN PRN PRN Reason: Constipation Mineral Oil/White Petrolatum (Eucerin Cream) 0 gm TOP BIDPRN PRN PRN Reason: Dry Skin Nitroglycerin (Nitrostat) 0.4 mg SL Q5MIN PRN PRN Reason: Chest Pain Ondansetron HCl (Zofran) 4 mg IVP Q6H PRN PRN Reason: Nausea/Vomiting Ondansetron HCl (Zofran Odt) 4 mg PO Q6H PRN PRN Reason: Nausea/Vomiting Phenol (Chloraseptic [place] 180 Ml Bot) 0 ml PO PRN PRN PRN Reason: Sore Throat Potassium Chloride (Klor-Con 10) 10 meq PO BID[facility] Last Admin: 06/15/18 08:46 Dose: 10 meq Rosuvastatin Calcium (Crestor) 40 mg PO DAILY [facility] Last Admin: 06/15/18 08:48 Dose: 40 mg Senna (Senokot) 2 tab PO HSPRN PRN PRN Reason: Constipation Sodium Chloride (Flush - Normal Saline) 10 ml IVF PRN PRN PRN Reason: Saline Flush Last Admin: 06/13/18 09:41 Dose: 10 ml Sodium Chloride ([place] Nasal [place] 0.65%) 0 ml EA NARE QIDPRN PRN PRN Reason: Nasal Congestion Spironolactone (Aldactone) 25 mg PO DAILY [facility] Last Admin: 06/15/18 08:48 Dose: 25 mg Temazepam (Restoril) 15 mg PO HSPRN PRN PRN Reason: Insomnia
[2018-06-16 04:48] LABS: #Eosinphils 0.3 thou/uL (0.0-0.7); #Lymphocytes 2.3 thou/uL (1.20-3.40); #Monocytes 0.7 thou/uL (0.11-0.59); #Neutrophils 5.1 thou/uL (1.40-6.50); %Basophils 0.3 % (0.0-1.0); %Eosinophils 3.2 % (0.0-10.0); %Lymphocytes 27.6 % (21.0-51.0); %Monocytes 8.1 % (0.0-10.0); %Neutrophils 60.8 % (42.0-75.0); Hemoglobin 10.2 g/dL (12.0-16.0); Mean Corpuscular HGB CONC 31.1 g/dL (32.0-36.0); Mean Corpuscular Hemoglobin 26.5 pg (27.0-31.0); Mean Corpuscular Volume 85.3 fL (78.0-98.0); Platelet Count 254 thou/uL (130-400); RBC Distribution Width 15.4 % (11.5-14.5); Red Blood Cell (RBC) Count 3.83 mill/uL (4.20-5.40); White Blood Cell (WBC) Count 8.3 thou/uL (4.8-10.8)
[2018-06-16 05:16] LABS: Anion Gap 10 mmol/L (10-20); BUN (Urea Nitrogen) 21 mg/dL (9.8-20.1); Calc. Creatinine Clearance 70 mL/min (70-130); Calcium 9.3 mg/dL (7.8-10.44); Carbon Dioxide 31 mmol/L (23-31); Chloride 102 mmol/L (98-107); Estimated GFR-MDRD 44; Glucose 120 mg/dL (80-115); Magnesium 2.1 mg/dL (1.6-2.6); Potassium 3.8 mmol/L (3.5-5.1); Sodium 139 mmol/L (136-145)
[2018-06-16] MEDS: Enoxaparin Sodium 40 MG/0.4 ML SYRINGE SC SCH (08:48)
[2018-06-16] MEDS: Famotidine 20 MG TAB PO SCH ×2 (08:48→21:49)
[2018-06-16] MEDS: Aspirin 81 mg Enteric Coated Tablet PO SCH (08:48)
[2018-06-16] MEDS: Potassium Chloride 10 MEQ TAB PO SCH ×2 (08:48→17:49)
[2018-06-16] MEDS: Rosuvastatin 20 MG TAB PO SCH (08:48)
[2018-06-16] MEDS: Carvedilol 25 MG TAB PO SCH ×2 (08:50→21:49)
[2018-06-16] MEDS: Insulin NPH/Reg Insulin Hm 300 UNITS/3 ML VIAL SC SCH ×2 (11:47→21:50)
--- NOTE | 2018-06-16 14:22 | PDOC.PN ---
- Subjective Encounter Start Date: 06/16/18 Encounter Start Time: 10:30 Subjective: pt up in bed no complains - Objective Resuscitation Status: Resuscitation Status FULL:Full Resuscitation Vital Signs & Weight: Vital Signs (12 hours) Temp Pulse Resp BP BP Pulse Ox 06/16/18 12:00 98.1 F 63 18 120/58 L 94 L 06/16/18 08:00 98.3 F 62 18 97/51 L 95 06/16/18 02:55 98.3 F 62 19 96/54 L 94 L Weight Weight 248 lb 9 oz I&O: 06/15/18 06/16/18 06/17/18 06:59 06:59 06:59 Intake Total 810 600 Output Total 1400 1100 Balance -590 -500 Result Diagrams: 06/16/18 04:22 06/16/18 04:22 Additional Labs: Accuchecks 06/16/18 06/16/18 06/16/18 10:38 06:52 06:07 POC Glucose 155 H 98 282 H 06/15/18 06/15/18 19:56 16:58 POC Glucose 165 H 93 Phys Exam - Physical Examination Neck: no nodes, no JVD, supple, full ROM Respiratory: no wheezing, no rales, no rhonchi, wheezing present, clear to auscultation bilateral Cardiovascular: RRR, no significant murmur, no rub, gallop, irregular Dx/Plan (1) Acute on chronic systolic ACC/AHA stage C congestive heart failure Code(s): I50.23 - ACUTE ON CHRONIC SYSTOLIC (CONGESTIVE) HEART FAILURE Status : Acute Comment: EF 20-15% (2) CAD (coronary artery disease) Code(s): I25.10 - ATHSCL HEART DISEASE OF [place] CORONARY ARTERY W/O ANG PCTRS Status: Chronic Comment: (3) HTN (hypertension) Code(s): I10 - ESSENTIAL (PRIMARY) HYPERTENSION Status: Chronic Comment: (4) DM type 2 (diabetes mellitus, type 2) Status: Chronic Qualifiers: Diabetes mellitus complication status: with hyperglycemia Comment: - Plan pt's creatinine is elevated today. Her bp also was low -: will stop her JUAN CARLOS/diuretic and nephrotoxins -: if creatinine is stable in am will discharge home. * . Review of Systems - Review of Systems Respiratory: negative: Cough, Dry, Shortness of Breath, Hemoptysis, SOB with Excertion, Pleuritic Pain, Sputum, Wheezing Cardiovascular: negative: chest pain, palpitations, orthopnea, paroxysmal nocturnal dyspnea, edema, light headedness, other Gastrointestinal: negative: Nausea, Vomiting, Abdominal Pain, Diarrhea, Constipation, Melena, Hematochezia, Other Genitourinary: negative: Dysuria, Frequency, Incontinence, Hematuria, Retention , Other - Medications/Allergies Allergies/Adverse Reactions: Allergies Allergy/AdvReac Type Severity Reaction Status Date / Time melon Allergy Verified 06/13/18 00:48 watermelon Allergy Verified 06/13/18 00:48 Medications: Current Medications Acetaminophen (Tylenol) 650 mg PO Q4H PRN PRN Reason: Headache/Fever/Mild Pain (1-3) Hydrocodone Bitart/Acetaminophen ([place] 5/325) 1 tab PO Q4H PRN PRN Reason: Moderate Pain (4-6) Al Hydroxide/Mg Hydroxide (Maalox) 15 ml PO Q4H PRN PRN Reason: Heartburn or Indigestion Artificial Tears (Tears Naturale) 0 drop EA EYE PRN PRN PRN Reason: Dry Eyes Aspirin (Ecotrin) 81 mg PO DAILY [facility] Last Admin: 06/16/18 08:48 Dose: 81 mg Carvedilol (Coreg) 25 mg PO BID [facility] Last Admin: 06/16/18 08:50 Dose: Not Given Dextrose/Water (Dextrose 50%) 25 gm SLOW IVP PRN PRN PRN Reason: Hypoglycemia Enoxaparin Sodium (Lovenox) 40 mg SC 0900 [facility] Last Admin: 06/16/18 08:48 Dose: 40 mg Famotidine (Pepcid) 20 mg PO BID [facility] Last Admin: 06/16/18 08:48 Dose: 20 mg Glucagon (Glucagon) 1 mg IM PRN PRN PRN Reason: Hypoglycemia Guaifenesin (Robitussin Sf) 200 mg PO Q4H PRN PRN Reason: Cough Hydralazine HCl (Apresoline) 10 mg SLOW IVP Q4H PRN PRN Reason: Systolic BP > 180 Dextrose/Water (D5w) 1,000 mls @ 0 mls/hr IV .Q0M PRN PRN Reason: Hypoglycemia Insulin Human Isoph/Insulin Regular (Humulin 70/30) 30 units SC QAM [facility] Last Admin: 06/16/18 11:47 Dose: 30 unit Insulin Human Isoph/Insulin Regular (Humulin 70/30) 15 units SC QPM [facility] Last Admin: 06/15/18 20:21 Dose: 15 unit Insulin Human Lispro (Humalog) 0 units SC .MILD SLIDING SCALE PRN PRN Reason: Mild Correctional Scale Last Admin: 06/14/18 18:08 Dose: 3 unit Lisinopril (Zestril) 20 mg PO DAILY [facility] Last Admin: 06/15/18 08:48 Dose: 20 mg Loperamide HCl (Imodium) 2 mg PO PRN PRN PRN Reason: Diarrhea/Loose Stools Last Admin: 06/15/18 17:35 Dose: 2 mg Loratadine (Claritin) 10 mg PO DAILYPRN PRN PRN Reason: Sinus Symptoms Magnesium Hydroxide (Milk Of Magnesium) 30 ml PO DAILYPRN PRN PRN Reason: Constipation Mineral Oil/White Petrolatum (Eucerin Cream) 0 gm TOP BIDPRN PRN PRN Reason: Dry Skin Nitroglycerin (Nitrostat) 0.4 mg SL Q5MIN PRN PRN Reason: Chest Pain Ondansetron HCl (Zofran) 4 mg IVP Q6H PRN PRN Reason: Nausea/Vomiting Ondansetron HCl (Zofran Odt) 4 mg PO Q6H PRN PRN Reason: Nausea/Vomiting Last Admin: 06/15/18 16:02 Dose: 4 mg Phenol (Chloraseptic [place] 180 Ml Bot) 0 ml PO PRN PRN PRN Reason: Sore Throat Potassium Chloride (Klor-Con 10) 10 meq PO BID-[facility] Last Admin: 06/16/18 08:48 Dose: 10 meq Rosuvastatin Calcium (Crestor) 40 mg PO DAILY [facility] Last Admin: 06/16/18 08:48 Dose: Not Given Senna (Senokot) 2 tab PO HSPRN PRN PRN Reason: Constipation Sodium Chloride (Flush - Normal Saline) 10 ml IVF PRN PRN PRN Reason: Saline Flush Last Admin: 06/16/18 08:49 Dose: 10 ml Sodium Chloride ([place] Nasal [place] 0.65%) 0 ml EA NARE QIDPRN PRN PRN Reason: Nasal Congestion Spironolactone (Aldactone) 25 mg PO DAILY [facility] Last Admin: 06/15/18 08:48 Dose: 25 mg Temazepam (Restoril) 15 mg PO HSPRN PRN PRN Reason: Insomnia
[2018-06-16] MEDS: HumaLOG 300 UNITS/3 ML VIAL SC PRN (17:48)
[2018-06-17 05:42] LABS: Anion Gap 11 mmol/L (10-20); BUN (Urea Nitrogen) 16 mg/dL (9.8-20.1); Calc. Creatinine Clearance 78 mL/min (70-130); Calcium 9.5 mg/dL (7.8-10.44); Carbon Dioxide 27 mmol/L (23-31); Chloride 104 mmol/L (98-107); Estimated GFR-MDRD 52; Glucose 75 mg/dL (80-115); Magnesium 2.3 mg/dL (1.6-2.6); Potassium 4.1 mmol/L (3.5-5.1); Sodium 138 mmol/L (136-145)
[2018-06-17] MEDS: Aspirin 81 mg Enteric Coated Tablet PO SCH (08:33)
[2018-06-17] MEDS: Potassium Chloride 10 MEQ TAB PO SCH ×2 (08:33→16:36)
[2018-06-17] MEDS: Carvedilol 25 MG TAB PO SCH (08:34)
[2018-06-17] MEDS: Famotidine 20 MG TAB PO SCH (08:34)
[2018-06-17] MEDS: Insulin NPH/Reg Insulin Hm 300 UNITS/3 ML VIAL SC SCH (08:34)
[2018-06-17] MEDS: Rosuvastatin 20 MG TAB PO SCH (08:35)
[2018-06-17] MEDS: Enoxaparin Sodium 40 MG/0.4 ML SYRINGE SC SCH (08:39)
[2018-06-17 16:35] VITALS: BP 105/52; TEMP 98.1
--- NOTE | 2018-06-18 12:55 | DIS ---
DATE OF ADMISSION: 06/13/2018 DATE OF DISCHARGE: 06/17/2018 DISCHARGE DIAGNOSES: 1. Acute on chronic systolic heart failure. 2. Coronary artery disease. 3. Hypertension. 4. Diabetes. 5. Obesity. HOSPITAL COURSE: The patient is a very pleasant 67-year-old female who initially presented to the [facility] with shortness of breath. She was admitted to the hospital and was treated with IV Lasix. Al so, she had a positive D-dimer, so she had a CTA of her chest which indicated no evidence of pulmonar y embolism and no acute lung process. Patient had a repeat echocardiogram that indicated EF of 25%-3 0%, which was actually better than her previous which was 20%-25%. She does have single chamber AICD . The patient continued to improve throughout the hospital stay. She was discharged home and she wi ll follow up with her primary care doctor and also with Cardiology as outpatient. She does have a hi story of chronic kidney disease. Her creatinine was around baseline, may be prior elevated prior to discharge. She was given a lab slip to follow up and also to check her blood work as outpatient. PHYSICAL EXAMINATION: VITAL SIGNS: Temperature of 98.7, 64, 16, 95% room air, 101/58. GENERAL: She is awake, alert, oriented x3, does not appear in distress. CARDIOVASCULAR: S1, S2 present. No murmurs, rubs or gallops. ABDOMEN: Soft, nontender. Bowel sounds are present. EXTREMITIES: No edema. Pedal pulses are present x2. HOME MEDICATIONS: Are as of the following: She will continue her 70/30 50 units at night and 30 uni ts in the morning, Coreg 25 b.i.d., torsemide 20 mg daily, rosuvastatin 40 mg daily, lisinopril 20 mg daily, aspirin 81 mg daily, spironolactone 12.5 daily, and glimepiride 2 mg which is decreased from 4 mg daily.
--- NOTE | 2018-06-19 13:46 | EKG ---
Test Reason : SOB Blood Pressure : / mmHG Vent. Rate : 067 BPM Atrial Rate : 067 BPM P-R Int : 198 ms QRS Dur : 088 ms QT Int : 480 ms P-R-T Axes : 058 057 072 degrees QTc Int : 507 ms Normal sinus rhythm Low voltage QRS Prolonged QT Abnormal ECG Confirmed by JESSICA PASTRANA, GABBY ([id number]), book or script editor PAT PINO ([id number]) on 06/19/2018 1:46:49 PM Referred By: Confirmed By:GABBY LOPEZ MD
== END 2018-06-17 19:19 | disposition home health service (06) | DRG 291 ==
LOC: ERS 19:24 → 2NO 22:27
PROVIDERS: ADMIT Hospitalist; ATTEND Hospitalist
DX: I13.0 Hypertensive heart and chronic kidney disease with heart failure and stage 1 through stage 4 chronic kidney disease, or unspecified chronic kidney disease (principal); I50.23 Acute on chronic systolic (congestive) heart failure; Z68.42 Body mass index [BMI] 45.0-49.9, adult; N18.3 Chronic kidney disease, stage 3 (moderate); E11.22 Type 2 diabetes mellitus with diabetic chronic kidney disease; E11.65 Type 2 diabetes mellitus with hyperglycemia; I25.10 Atherosclerotic heart disease of native coronary artery without angina pectoris; D63.1 Anemia in chronic kidney disease; I25.5 Ischemic cardiomyopathy; Z95.810 Presence of automatic (implantable) cardiac defibrillator; E66.01 Morbid (severe) obesity due to excess calories; E87.6 Hypokalemia; I25.2 Old myocardial infarction; Z87.891 Personal history of nicotine dependence; E78.5 Hyperlipidemia, unspecified; Z90.49 Acquired absence of other specified parts of digestive tract; Z90.710 Acquired absence of both cervix and uterus
CPT/HCPCS: 36415; 36416; 71045; 71275; 80048; 80053; 82553; 83690; 83735; 83880; 84443; 84484; 84550; 85025; 85379; 90471; 90670; 93005; 93306; 93798; 96374; G0009; J1650; J1940; Q0162

== ENCOUNTER 2018-07-11 09:58 | Outpatient (CLI) | payer MEDICARE, MEDICAID ==
--- NOTE | 2018-07-11 11:25 | RAD ---
LUMBAR SPINE 3 VIEWS: Date: 07/11/18 HISTORY: Low back pain. COMPARISON: None. FINDINGS: Small bilateral T12 ribs. Five non-rib bearing lumbar-type vertebra. Mild narrowing L4-5 and L5-S1 di sc spaces. No acute fracture or malalignment. No subluxation. IMPRESSION: Mid degenerative changes lower lumbar spine. POS: [facility]
== END 2018-07-11 09:59 | disposition home or self-care (01) ==
LOC: RAD-FRANK 09:58
PROVIDERS: ATTEND Nurse Practitioner Family
DX: M54.5 Low back pain (principal); M47.816 Spondylosis without myelopathy or radiculopathy, lumbar region
CPT/HCPCS: 72100

== ENCOUNTER 2018-12-06 19:13 | Emergency (ER) | payer MEDICARE, MEDICAID ==
--- NOTE | 2018-12-06 21:45 | RAD ---
RADIOGRAPH CHEST 1 VIEW: Date: 12/06/18 Time: 9:07 p.m. HISTORY: 68-year-old female with cough. COMPARISON: 06/12/18. FINDINGS: Single lead left subclavian AICD. Cardiomegaly. Lower lung zones poorly visualized, especially the le ft retrocardiac lower lobe, because of body habitus. No pneumothorax. Lung apices grossly clear. IMPRESSION: 1. Cardiomegaly. 2. Automatic implantable cardioverter/defibrillator. BRADLEY [] POS: [facility]
== END 2018-12-06 23:20 | disposition home or self-care (01) ==
LOC: ERS 19:13
DX: J06.9 Acute upper respiratory infection, unspecified (principal); I11.0 Hypertensive heart disease with heart failure; I50.9 Heart failure, unspecified; E78.5 Hyperlipidemia, unspecified; I25.2 Old myocardial infarction; E11.9 Type 2 diabetes mellitus without complications; Z87.891 Personal history of nicotine dependence
CPT/HCPCS: 71045

== ENCOUNTER 2018-12-07 23:28 | Inpatient (IN) | payer MEDICARE, MEDICAID ==
[2018-12-08 00:15] LABS: #Eosinphils 0.3 thou/uL (0.0-0.7); #Lymphocytes 2.4 thou/uL (1.20-3.40); #Monocytes 0.7 thou/uL (0.11-0.59); #Neutrophils 6.6 thou/uL (1.40-6.50); %Basophils 0.3 % (0.0-1.0); %Eosinophils 2.8 % (0.0-10.0); %Lymphocytes 23.7 % (21.0-51.0); %Monocytes 7.3 % (0.0-10.0); %Neutrophils 65.9 % (42.0-75.0); Hemoglobin 10.7 g/dL (12.0-16.0); Mean Corpuscular Hemoglobin 27.1 pg (27.0-31.0); Mean Corpuscular Volume 84.6 fL (78.0-98.0); Mean Platelet Volume 8.9 fL (7.4-10.4); Platelet Count 277 thou/uL (130-400); RBC Distribution Width 13.6 % (11.5-14.5); Red Blood Cell (RBC) Count 3.94 mill/uL (4.20-5.40); White Blood Cell (WBC) Count 10.1 thou/uL (4.8-10.8)
[2018-12-08 00:33] LABS: Albumin 3.6 g/dL (3.4-4.8)
[2018-12-08 00:34] LABS: Chloride 95 mmol/L (98-107); Sodium 139 mmol/L (136-145)
[2018-12-08 00:35] LABS: Calcium 9.7 mg/dL (7.8-10.44); Glucose 198 mg/dL (80-115)
[2018-12-08 00:36] LABS: Globulin 3.8 g/dL (2.4-3.5); Protein, Total 7.4 g/dL (6.0-8.3)
[2018-12-08 00:37] LABS: Bilirubin, Total 0.3 mg/dL (0.2-1.2); Carbon Dioxide 35 mmol/L (23-31)
[2018-12-08 00:38] LABS: Alkaline Phosphatase 120 U/L (40-150); Potassium 2.7 mmol/L (3.5-5.1)
[2018-12-08 00:39] LABS: Anion Gap 12 mmol/L (10-20); Calc. Creatinine Clearance 0 mL/min (70-130); Estimated GFR-MDRD 54
[2018-12-08 00:40] LABS: BUN (Urea Nitrogen) 15 mg/dL (9.8-20.1)
[2018-12-08 00:41] LABS: ALT (SGPT) Less than 7 U/L (8-55); AST (SGOT) 17 U/L (5-34)
[2018-12-08] MEDS ORDERED: Aspirin 325 MG TAB ONE (00:54)
[2018-12-08] MEDS ORDERED: Magnesium 2 GM/50 ML BAG (IN WATER) ONE (00:54)
[2018-12-08 01:02] LABS: CKMB 3.7 ng/mL (0-6.6)
[2018-12-08] MEDS ORDERED: Potassium Chloride 40 MEQ in Sodium Chloride 0.9% 250 ML 250 ML IVPB SCH (01:15)
[2018-12-08 03:58] LABS: Critical Call Chem Troponin I RESULT DECREASING; Troponin I 1.045 ng/mL (< 0.028)
[2018-12-08 06:38] LABS: Critical Call Chem Troponin I RESULT DECREASING; Troponin I 0.855 ng/mL (< 0.028)
--- NOTE | 2018-12-08 07:41 | RAD ---
FRadiograph chest one view 12/08/2018 11:49 PM HISTORY: 68-year-old female status post syncope COMPARISON: 12/06/2018 FINDINGS: Better visualization of lung bases. Lungs are grossly clear. Mild cardiomegaly. Single lead left subc lavian AICD. No pneumothorax. No interval change. IMPRESSION: 1. No infiltrate 2. Mild cardiomegaly.
[2018-12-08] MEDS ORDERED: Potassium Chloride 20 MEQ TAB PO SCH ×2 (07:52→16:15)
[2018-12-08] MEDS ORDERED: Dextrose 5% in Water 1,000 ML IV PRN (07:53)
[2018-12-08] MEDS ORDERED: Dextrose 50% Abboject 50 ML SYRINGE SLOW IVP PRN (07:53)
[2018-12-08] MEDS ORDERED: Furosemide 40 MG/4 ML VIAL SLOW IVP SCH (08:00)
[2018-12-08] MEDS: Nitroglycerin 2% Ointment 1 INCH/1 GM Packet TOP SCH ×3 (08:20→23:25)
[2018-12-08] MEDS ORDERED: Heparin 1,000 UNITS/ML VIAL ONE (09:01)
[2018-12-08] MEDS ORDERED: Insulin Regular 300 UNITS/3 ML VIAL ONE (09:01)
[2018-12-08] MEDS ORDERED: HumaLOG 300 UNITS/3 ML VIAL ONE (09:11)
[2018-12-08] MEDS: HumaLOG 300 UNITS/3 ML VIAL SC PRN ×2 (09:12→11:22)
[2018-12-08 11:24] LABS: Anion Gap 11 mmol/L (10-20); BUN (Urea Nitrogen) 17 mg/dL (9.8-20.1); Calc. Creatinine Clearance 0 mL/min (70-130); Calcium 9.7 mg/dL (7.8-10.44); Carbon Dioxide 34 mmol/L (23-31); Chloride 95 mmol/L (98-107); Estimated GFR-MDRD 55; Glucose 306 mg/dL (80-115); Potassium 3.1 mmol/L (3.5-5.1); Sodium 137 mmol/L (136-145)
--- NOTE | 2018-12-08 13:06 | HP ---
PRIMARY CARE PHYSICIAN: Cydney Orozco PA-C CHIEF COMPLAINT: Near syncopal episode. HISTORY OF PRESENT ILLNESS: The patient is a 68-year-old female, who has significant past medical history of heart problems, who was getting better from her upper respiratory tract infection and she had a near syncopal episode at home. She did not have any chest pain. She did not have any shortness of breath, but all of a sudden, she felt kind of weak and tired and she had to lay down and called EMS and was taken to the emergency room for further evaluation. In the emergency room, she was found to have non-STEMI and is getting admitted for further management and evaluation. She denied any chest pain. She denied any shortness of breath. No fever. No chills. PAST MEDICAL HISTORY: Positive for; 1. Congestive heart failure with low LVEF around 30% according to echo from 2018. 2. History of MO. 3. Pacemaker and defibrillator. 4. Diabetes mellitus type 2. 5. Hyperlipidemia. 6. Hypertension. PAST SURGICAL HISTORY: 1. Lymph nodes removed from the neck. 2. Cholecystectomy. 3. Hysterectomy. SOCIAL HISTORY: She used to smoke, but quit more than 10 years ago. She denies any alcohol intake or illicit drug use. FAMILY HISTORY: Father in his 80s from heart trouble and mother had Alzheimer dementia and she passed in her 90s. Surrogate decision maker is the patient's son, Schuyler, and PCP is Cydney HOOVER, from [place]. REVIEW OF SYSTEMS: All 10-systems were reviewed and only positive for those which are mentioned in HPI. PHYSICAL EXAMINATION: GENERAL: She is not in any distress during my visit. VITAL SIGNS: Blood pressure is 153/87, pulse 73, and pulse oximetry is 93% on room air. Her respiratory rate is 16. HEENT: Head is atraumatic and normocephalic. Eyes are PERRLA. Sclerae are nonicteric. Conjunctivae palish. Oral mucosa is moist. NECK: Supple. LUNGS: Slightly diminished at both bases, breath sounds. HEART: S1 and S2 normal. No S3. No S4. Her pacemaker/defibrillator is in place in the left upper chest. There is no any reaction to the site. ABDOMEN: Obese, soft, and nontender. Bowel sounds are present. EXTREMITIES: 1+ peripheral edema similar bilateral on both lower extremities. NEUROLOGIC: She is alert and oriented x4. There is no any motor or sensory deficits present. Cranial nerves are intact. SKIN: No rash or erythema. LABORATORY DATA: Labs showed white count of 10.1, hemoglobin of 10.7, hematocrit 33.4, and platelet count 277. The rest of CBC within normal limits. Sodium of 139, potassium 2.7, chloride 95, CO2 of 35, BUN 15, creatinine 1.20, glucose is 198, calcium 9.7, and AST 17. Troponin I 1.045 and 0.855 and BNP 744.2. Globulin 3.8 and TSH is 3.01. EKG, sinus rhythm with ventricular rate of 72 beats per minute, some occasional PVCs and nonspecific ST-T wave changes. The ST-segment is not elevated. Chest x-ray did not show any pleural effusion, increased congestion in her lungs. No acute findings. IMPRESSION: 1. Near syncope, most likely related to her non-ST segment elevation myocardial infarction. 2. Hypokalemia, most likely secondary to diuretic use. She is on spironolactone and torsemide. 3. Congestive heart failure with low left ventricular ejection fraction at 30% on the last echo. 4. Pacemaker/defibrillator. 5. Diabetes mellitus. 6. Hypertension. 7. Hyperlipidemia. 8. Chronic normocytic anemia. PLAN: Admission to telemetry. Full admission. Condition is fair. Activity bedrest and bathroom privileges. IV Hep-Lock. Lasix 40 mg IV push every 12 hours. Nitroglycerin paste half an inch every 8 hours. Cardiology consultation with Dr. Sanders, who is on-call today. Echocardiogram. She had her aspirin 325 mg this morning in the emergency room. We will continue that. We will check her magnesium level since I do not see any level, but she received 2 g of IV piggyback of magnesium sulfate in the emergency room. Also, we will check her BMP at 10 o'clock this morning, since she had some potassium and we will give her 40 mEq of potassium p.o. We will put her on sliding scale and reconcile her home medications. Job ID: [id number]
[2018-12-08] MEDS ORDERED: Benzonatate 100 MG CAP ONE (13:14)
[2018-12-08] MEDS: Benzonatate 100 MG CAP PO PRN ×3 (13:29→23:25)
[2018-12-08 15:53] VITALS: BMI 47.6
[2018-12-08] MEDS: Heparin 5,000 UNITS/ML VIAL SC SCH ×3 (16:21→20:33)
[2018-12-08] MEDS: Furosemide 40 MG/4 ML VIAL SLOW IVP SCH (16:21)
--- NOTE | 2018-12-08 22:47 | CON ---
DATE OF CONSULTATION: REASON FOR CONSULTATION: ? syncope. HISTORY OF PRESENT ILLNESS: Ms. Maldonado is a very pleasant 68-year-old woman, who was last seen by Cathy Ayala in October. She has a previous history of obesity, sarcoidosis, CHF, and coronary artery disease. She recently presented with a near syncopal episode. She does have a history of ICD, status post pacemaker placement. Her last LVEF was estimated at 30%. No nausea, vomiting, or other associated symptoms. No chest pain, pressure, or shortness of breath. She was found to have a mildly elevated troponin and was subsequently admitted. She does have a previous history of severe underlying coronary artery disease, it was felt to be inoperable. This was in 2004. She has heavily calcified vessels. PAST MEDICAL HISTORY: Severe inoperable coronary artery disease, sarcoidosis, morbid obesity, hyperlipidemia, hypertension, congestive heart failure with LVEF as described above. HOME MEDICATIONS: Include Crestor, lisinopril, spironolactone, NovoLog, glipizide, potassium, carvedilol, torsemide, clindamycin, and aspirin. SURGICAL HISTORY: Cholecystectomy and total abdominal hysterectomy. FAMILY HISTORY: Positive for CAD. SOCIAL HISTORY: No current tobacco or alcohol use. ALLERGIES: NONE. REVIEW OF SYSTEMS: A 10-point review of systems is reviewed and as above, otherwise negative. PHYSICAL EXAMINATION: GENERAL: Patient is a pleasant female, who is in no acute distress. The patient appears their stated age. VITAL SIGNS: Blood pressure 131/58, pulse 75, temperature 97.9. NEUROLOGIC: The patient is alert and oriented x3 with no focal neurologic deficits. HEENT: Sclerae without icterus. Mouth has moist mucous membranes with normal pallor. NECK: No JVD. Carotid upstroke brisk. No bruits bilaterally. LUNGS: Clear to auscultation with unlabored respirations. BACK: No scoliosis or kyphosis. CARDIAC: Regular rate and rhythm with normal S1 and S2. No S3 or S4 noted. No significant rubs, murmurs, thrills, or gallops noted throughout the precordium. PMI is not displaced. There is no parasternal heave. ABDOMEN: Soft, nontender, nondistended. No peritoneal signs present. No hepatosplenomegaly. No abnormal striae. EXTREMITIES: 2+ femoral and 2+ dorsalis pedis pulses. No cyanosis, clubbing, or edema. SKIN: No gross abnormalities. LABORATORY DATA: Peak troponin 0.8 with creatinine of 1.1. Potassium 3.1, chloride 95. IMPRESSION: 1. Syncope. 2. Severe inoperable coronary artery disease. 3. Acute on chronic systolic heart failure. RECOMMENDATIONS: Ms. Maldonado' symptoms could be from a dysrhythmia. We would recommend interrogating the ICD. She unfortunately has inoperable coronary artery disease and may also be due to underlying marked ischemia. Would continue medical therapy as prescribed. We will continue to monitor overnight. Her elevated troponin, likely type 2 [place], not unstable plaque. Further recommendations pending the above. Job ID: [id number]
[2018-12-09] MEDS: Acetaminophen/Codeine 30-300mg Tablet PO PRN ×3 (03:08→22:34)
[2018-12-09 05:00] LABS: #Eosinphils 0.3 thou/uL (0.0-0.7); #Lymphocytes 2.7 thou/uL (1.20-3.40); #Monocytes 0.7 thou/uL (0.11-0.59); %Basophils 0.4 % (0.0-1.0); %Eosinophils 3.2 % (0.0-10.0); %Lymphocytes 31.2 % (21.0-51.0); %Monocytes 7.5 % (0.0-10.0); %Neutrophils 57.8 % (42.0-75.0); Hemoglobin 10.6 g/dL (12.0-16.0); Mean Corpuscular HGB CONC 31.9 g/dL (32.0-36.0); Mean Corpuscular Hemoglobin 26.8 pg (27.0-31.0); Mean Corpuscular Volume 83.9 fL (78.0-98.0); Mean Platelet Volume 9.3 fL (7.4-10.4); Platelet Count 267 thou/uL (130-400); RBC Distribution Width 13.7 % (11.5-14.5); Red Blood Cell (RBC) Count 3.98 mill/uL (4.20-5.40); White Blood Cell (WBC) Count 8.7 thou/uL (4.8-10.8)
[2018-12-09 05:23] LABS: Anion Gap 13 mmol/L (10-20); BUN (Urea Nitrogen) 17 mg/dL (9.8-20.1); Calc. Creatinine Clearance 83 mL/min (70-130); Calcium 9.4 mg/dL (7.8-10.44); Carbon Dioxide 32 mmol/L (23-31); Chloride 95 mmol/L (98-107); Estimated GFR-MDRD 53; Glucose 333 mg/dL (80-115); Sodium 137 mmol/L (136-145)
[2018-12-09] MEDS: Furosemide 40 MG/4 ML VIAL SLOW IVP SCH ×2 (05:57→15:04)
[2018-12-09] MEDS ORDERED: Non-Formulary Item 1 EACH (Omeprazole [Omeprazole] 40 MG) PO SCH (09:00)
[2018-12-09] MEDS ORDERED: Non-Formulary Item 1 EACH (Rosuvastatin Calcium [Crestor] 40 MG) PO SCH (09:00)
[2018-12-09] MEDS ORDERED: Aspirin 325 MG TAB PO SCH (09:00)
[2018-12-09] MEDS: Heparin 5,000 UNITS/ML VIAL SC SCH ×3 (09:04→20:14)
[2018-12-09] MEDS: Nitroglycerin 2% Ointment 1 INCH/1 GM Packet TOP SCH ×2 (09:04→15:23)
[2018-12-09] MEDS: Lisinopril 20 MG TAB PO SCH (09:05)
[2018-12-09] MEDS: Spironolactone 25 MG TAB PO SCH (09:05)
[2018-12-09] MEDS: Carvedilol 25 MG TAB PO SCH ×2 (09:05→20:13)
[2018-12-09] MEDS: Glimepiride 4 MG TAB PO SCH (09:06)
[2018-12-09] MEDS: guaiFENesin ER 600 MG TAB PO SCH ×2 (09:06→20:13)
[2018-12-09] MEDS: Aspirin 81 mg Enteric Coated Tablet PO SCH (09:06)
[2018-12-09] MEDS: Potassium Chloride 20 MEQ TAB PO SCH ×3 (09:07→16:05)
--- NOTE | 2018-12-09 09:55 | PRG ---
DATE OF SERVICE: 12/09/2018 SUBJECTIVE: Erica states that she still has a cough. Her breathing is improved. She said she had a good urine output. OBJECTIVE: VITAL SIGNS: Blood pressure 132/57, pulse 80, it is regular. LUNGS: Clear. CARDIAC: Normal S1, normal S2. ABDOMEN: Obese, nontender. EXTREMITIES: Still moderate edema. ASSESSMENT: 1. Congestive heart failure systolic, acute on chronic, improving. 2. Inoperable coronary disease. 3. Hypokalemia, potassium 3.0. PLAN: 1. Continue to replete potassium. 2. She is on intravenous diuretics. 3. Probably be ready to go home tomorrow. 4. Interrogate defibrillator while she is here. 5. Check lipid profile in the morning. Job ID: [id number]
--- NOTE | 2018-12-09 11:01 | PRG ---
DATE OF SERVICE: 12/09/2018 SUBJECTIVE: The patient is seen and examined at the bedside. She is feeling better. She does not have chest pain. Her shortness of breath . OBJECTIVE: VITAL SIGNS: Blood pressure is 132/57, pulse is 81, respirations are 17, O2 saturation is 95% on room air. Her temperature is 98.2. HEENT: Her head is atraumatic and normocephalic. Sclerae are nonicteric. Oral mucosa is moist. NECK: Supple. Obese. LUNGS: Breath sounds somewhat diminished at both bases. HEART: S1, S2 normal. No S3. No S4. Somewhat distant. ABDOMEN: Soft, obese, nontender to palpation. EXTREMITIES: 1+ peripheral edema similar bilateral on both lower extremities. NEUROLOGICAL: She is alert and oriented x4. There are no any motor or sensory deficits present. Cranial nerves are intact. LABORATORY DATA: Labs showed white count of 8.7, hemoglobin is 10.6, hematocrit is 33.3, platelet count is 267,000. Sodium of 137, potassium 3.0, chloride 95, CO2 of 32, BUN 17, creatinine 1.23. Glycemia is ranging from 257 to 322. Calcium is 9.4. IMPRESSION: 1. Near syncope. 2. ST elevation myocardial infarction. 3. Hypokalemia. 4. Congestive heart failure on current echocardiogram. It was difficult to assess her left ventricular ejection fraction, but according to the previous one, it was down to 30%. 5. Pacemaker/defibrillator. 6. Diabetes mellitus. 7. Hypertension. 8. Hyperlipidemia. 9. Chronic normocytic anemia. PLAN: pacer. We will continue IV diuretics. We will restart her home medications. Continue her aspirin and should be able to go home in the next 24 to 48 hours. Job ID: [id number]
[2018-12-09 11:10] LABS: Iron 57 ug/dL (50-170); Iron Binding Capacity, Total 284 mcg/dL (265-497)
[2018-12-09] MEDS: HumuLIN 70/30 (300 UNITS/3 ML VIAL) SC SCH (11:48)
[2018-12-09] MEDS: HumaLOG 300 UNITS/3 ML VIAL SC PRN ×2 (12:03→17:31)
[2018-12-09] MEDS: Rosuvastatin 20 MG TAB PO SCH (20:13)
[2018-12-09] MEDS ORDERED: HumuLIN 70/30 (300 UNITS/3 ML VIAL) SC SCH (21:00)
[2018-12-10] MEDS: Nitroglycerin 2% Ointment 1 INCH/1 GM Packet TOP SCH ×3 (00:15→17:25)
[2018-12-10] MEDS: Furosemide 40 MG/4 ML VIAL SLOW IVP SCH (05:40)
[2018-12-10 06:05] LABS: Anion Gap 12 mmol/L (10-20); BUN (Urea Nitrogen) 18 mg/dL (9.8-20.1); Calc. Creatinine Clearance 84 mL/min (70-130); Calcium 9.8 mg/dL (7.8-10.44); Carbon Dioxide 33 mmol/L (23-31); Cardiac Risk 4.2 (Less than 4.5); Chloride 99 mmol/L (98-107); Cholesterol 105 mg/dl (< 200 Desired); Estimated GFR-MDRD 55; Glucose 178 mg/dL (80-115); HDL Cholesterol 25 mg/dL (>60 Neg Risk); LDL Cholesterol, Calculated 59 mg/dL; Potassium 3.5 mmol/L (3.5-5.1); Sodium 140 mmol/L (136-145); Triglycerides 107 mg/dL (Less than 150)
[2018-12-10] MEDS ORDERED: Iron, Sodium Ferric Gluconate 250 MG in Sodium Chloride 0.9% 100 ML IVPB SCH (08:00)
[2018-12-10] MEDS ORDERED: Potassium Chloride 20 MEQ TAB PO SCH ×2 (08:00→17:00)
--- NOTE | 2018-12-10 09:01 | PRG ---
DATE OF SERVICE: 12/10/2018 SUBJECTIVE: Ms. Maldonado is sitting up in the side of the bed. She is breathing well. She did have no chest pain or pressure. OBJECTIVE: VITAL SIGNS: Blood pressure 111/53, pulse 62. LUNGS: Clear. CARDIAC: Normal S1 and S2. ABDOMEN: Obese and nontender. EXTREMITIES: There is still moderate edema. ASSESSMENT: 1. Congestive heart failure, improved. 2. Still mildly hypokalemic, potassium 3.5. 3. Iron deficient with an iron level of 57 and a ferritin level below the target of 76. PLAN: 1. Give her single dose of intravenous iron. 2. Change to oral torsemide. 3. We will continue to replete potassium. 4. Okay with me to go home later today. She understands that she needs to try to lose weight, try to modify her risk factors, she has inoperable coronary artery disease. Job ID: [id number]
[2018-12-10] MEDS: Acetaminophen/Codeine 30-300mg Tablet PO PRN (09:42)
[2018-12-10] MEDS: Lisinopril 20 MG TAB PO SCH (10:29)
[2018-12-10] MEDS: Spironolactone 25 MG TAB PO SCH (10:30)
[2018-12-10] MEDS: Torsemide 20 MG TAB PO SCH (10:31)
[2018-12-10] MEDS: guaiFENesin ER 600 MG TAB PO SCH ×2 (10:32→20:45)
[2018-12-10] MEDS: Aspirin 81 mg Enteric Coated Tablet PO SCH (10:32)
[2018-12-10] MEDS: Carvedilol 25 MG TAB PO SCH ×2 (10:32→20:45)
[2018-12-10] MEDS: Glimepiride 4 MG TAB PO SCH (10:32)
[2018-12-10] MEDS: Heparin 5,000 UNITS/ML VIAL SC SCH ×3 (10:34→20:45)
[2018-12-10] MEDS: HumuLIN 70/30 (300 UNITS/3 ML VIAL) SC SCH (10:34)
--- NOTE | 2018-12-10 17:40 | PRG ---
DATE OF SERVICE: 12/10/2018 SUBJECTIVE: The patient is seen and examined at the bedside. She complains about dizziness and being very unsteady on her feet this morning. She does not have any chest pain. She is not short of breath, but she is afraid that she is going to get up and fall. OBJECTIVE: VITAL SIGNS: Blood pressure is 104/57, pulse is 60, temperature is 98, respiratory rate is 18, and O2 saturation is 93% on room air. HEENT: Head is atraumatic and normocephalic. Eyes are PERRLA. Sclerae are nonicteric. Oral mucosa is somewhat dry. NECK: Supple. LUNGS: Breath sounds diminished at both bases with some crackles at both bases. HEART: S1 and S2, regular. No S3. No S4. ABDOMEN: Obese and nontender. Bowel sounds are present. No organomegaly. EXTREMITIES: 1+ peripheral edema similar bilateral on both lower extremities. NEUROLOGIC: She is alert and oriented x4. There are no any motor or sensory deficits present. Cranial nerves are intact. LABORATORY DATA: Labs showed sodium of 140, potassium 3.5, chloride 99, CO2 of , BUN 18, creatinine 1.19, yesterday creatinine was 1.23. Glycemia is ranging from 181 to 276, triglycerides 107, total cholesterol 105, LDL 59, and HDL 25. IMPRESSION: 1. Congestive heart failure with a LVEF based on the previous echo. The current echo technically difficult, was not able to assess appropriately her left ventricular ejection fraction. 2. Pacemaker/defibrillator. 3. Diabetes mellitus, not controlled. 4. Hypertension. 5. Hyperlipidemia. 6. Chronic normocytic anemia. 7. Dizziness of unclear etiology, could be related to hypovolemia secondary to diuretic use. 8. . 9. Hypokalemia, status post supplementation. 10. Near syncope. PLAN: Plan is to cut back on her diuresis and discharge, she was supposed to go home today, but because of the dizziness and very unsteady and lack of balance, the discharge was postponed until tomorrow morning. We will go up on her insulin 70/30 to 30 units every morning and 18 units every evening and they continue the sliding scale with before meals and at bedtime Accu-Cheks. We will continue diuretics since Dr. Turner use torsemide 40 mg once a day along with spironolactone 25 mg once a day. We will give her additional dose of potassium since her potassium is on the lower side at 3.5 this morning. Job ID: [id number]
[2018-12-10] MEDS: Rosuvastatin 20 MG TAB PO SCH (20:45)
[2018-12-10] MEDS ORDERED: Insulin Glargine 18 UNITS in Pre-Filled Syringe SC SCH (21:00)
[2018-12-11] MEDS: Acetaminophen/Codeine 30-300mg Tablet PO PRN (00:42)
[2018-12-11] MEDS: Nitroglycerin 2% Ointment 1 INCH/1 GM Packet TOP SCH ×2 (01:09→09:03)
[2018-12-11] MEDS: Spironolactone 25 MG TAB PO SCH (08:36)
[2018-12-11] MEDS: Carvedilol 25 MG TAB PO SCH (08:36)
[2018-12-11] MEDS: Aspirin 81 mg Enteric Coated Tablet PO SCH (08:36)
[2018-12-11] MEDS: guaiFENesin ER 600 MG TAB PO SCH (08:36)
[2018-12-11] MEDS: Torsemide 20 MG TAB PO SCH (08:36)
[2018-12-11] MEDS: Lisinopril 20 MG TAB PO SCH (08:36)
[2018-12-11] MEDS: Glimepiride 4 MG TAB PO SCH (08:36)
[2018-12-11] MEDS: Heparin 5,000 UNITS/ML VIAL SC SCH (08:37)
[2018-12-11] MEDS: HumuLIN 70/30 (300 UNITS/3 ML VIAL) SC SCH (08:37)
--- NOTE | 2018-12-11 12:40 | DIS ---
DATE OF ADMISSION: 12/08/2018 DATE OF DISCHARGE: 12/11/2018 DISCHARGE DIAGNOSES: 1. Acute cqr-LU-tuligoxys myocardial infarction. 2. Bztou-eg-fprrinh congestive heart failure, systolic and diastolic. 3. Ischemic cardiomyopathy with ejection fraction in 30s. 4. Status post AICD placement. 5. Uncontrolled type-2 diabetes mellitus. 6. Morbid obesity. 7. Hypertension. 8. Hyperlipidemia. 9. Iron-deficiency anemia. 10. Hypokalemia. 11. Near syncope. HOSPITAL COURSE: A 68-year-old morbidly obese female with known history of ischemic cardiomyopathy, status post AICD placement, who presented to the hospital after a near syncopal episode. Evaluation in the emergency room revealed elevated troponin consistent with acute non-ST elevation myocardial infarction. The patient was started on antithrombotic therapy. She also complained shortness of breath and was felt also to have [id number] systolic and diastolic heart failure, was started on diuretics. Cardiology consult was obtained, and the patient had interrogation of the AICD. It was, however, felt that the near-syncope is related to the acute PR. The patient was treated with optimization of cardiac medications and diuretics with improvement. The patient also was found to have uncontrolled diabetes, hence medications were adjusted appropriately with improvement. She remained improved and hemodynamically stable and was subsequently discharged home to follow up with PCP. PHYSICAL EXAMINATION: VITAL SIGNS: Temperature 98.2, pulse 62, respiratory rate 16, SpO2 of 97 on room air, blood pressure 122/60. GENERAL: Morbidly obese female, in no obvious distress. Afebrile. Anicteric. Acyanotic. RESPIRATORY: Good air entry bilaterally with no obvious crackle or rhonchi or use of accessory muscles. CARDIOVASCULAR: Regular rhythm and rate with normal heart sounds 1 and 2. GI: Morbidly obese abdomen. Soft, nontender with normal bowel sounds. EXTREMITIES: Grossly normal looking, atraumatic with no obvious edema. NEUROLOGIC: Conscious, alert, oriented x3 with appropriate mental status. The patient is ambulant. DISPOSITION: Home with Home Health. CONDITION AT DISCHARGE: Improved and stable. DISCHARGE MEDICATIONS: 1. Aspirin 81 mg p.o. daily. 2. Carvedilol 25 mg p.o. b.i.d. 3. Lisinopril 20 mg p.o. daily. 4. Omeprazole 40 mg p.o. daily. 5. Crestor 40 mg p.o. daily. 6. Spironolactone 25 mg p.o. daily. 7. Torsemide 40 mg p.o. daily. 8. Isosorbide dinitrate 10 mg p.o. b.i.d. 9. Humulin insulin 70/30, 30 units in the morning and 15 units in the evening. FOLLOWUP: The patient is to follow up with the PCP in 1 week. She is also to follow up with Cardiology in 2 to 3 weeks. TIME SPENT: This discharge took more than 35 minutes. Job ID: [id number]
[2018-12-11 18:21] VITALS: BP 96/56; TEMP 98.8
== END 2018-12-11 13:33 | disposition home health service (06) | DRG 280 ==
LOC: ERS 23:28 → ERHOLD 12-08 02:36 → 2NO 12-08 15:41
PROVIDERS: ADMIT Family Medicine; ATTEND Family Medicine
DX: I21.A1 Myocardial infarction type 2 (principal); I50.43 Acute on chronic combined systolic (congestive) and diastolic (congestive) heart failure; Z68.42 Body mass index [BMI] 45.0-49.9, adult; I11.0 Hypertensive heart disease with heart failure; I25.5 Ischemic cardiomyopathy; E66.01 Morbid (severe) obesity due to excess calories; E11.65 Type 2 diabetes mellitus with hyperglycemia; D50.9 Iron deficiency anemia, unspecified; E78.5 Hyperlipidemia, unspecified; E86.1 Hypovolemia; I25.10 Atherosclerotic heart disease of native coronary artery without angina pectoris; E87.6 Hypokalemia; Z90.49 Acquired absence of other specified parts of digestive tract; Z95.810 Presence of automatic (implantable) cardiac defibrillator; Z90.710 Acquired absence of both cervix and uterus; Z87.891 Personal history of nicotine dependence; Z95.0 Presence of cardiac pacemaker; Z79.84 Long term (current) use of oral hypoglycemic drugs; Z79.899 Other long term (current) drug therapy
CPT/HCPCS: 36415; 36416; 71045; 80048; 80053; 80061; 82553; 82728; 83540; 83550; 83735; 83880; 84443; 84484; 85025; 93005; 93306; 93798; 96365; 96366; 96367; J1644; J1815; J1825; J1940; J2916; J3475; J3480; J7050

== ENCOUNTER 2019-10-31 23:13 | Inpatient (IN) | payer MEDICARE, MEDICAID ==
--- NOTE | 2019-11-01 00:02 | RAD ---
EXAM: XR Chest 1 View Portable PROVIDED CLINICAL HISTORY: Cough COMPARISON: 12/07/2018 FINDINGS: Cardiac and mediastinal silhouette is unchanged in appearance. Left subclavian cardiac pacing device is again seen in similar position. Airspace disease right upper lung zone laterally. Lungs appear otherwise clear. No pleural fluid or pneumothorax apparent. IMPRESSION: Right upper lung zone airspace disease, compatible with pneumonia in the appropriate clinical context . Follow-up after treatment is recommended to evaluate for resolution.
[2019-11-01 00:04] LABS: Bilirubin Negative (Negative); Blood, Urine Negative (Negative); Clarity Clear (Clear); Glucose, Urine (Dipstick) Greater than 1000 mg/dL (Negative); Leukocyte Negative Leu/uL (Negative); Nitrite Negative (Negative); Protein, Urine (Dipstick) Negative (Neg-Trace); Urobilinogen Normal mg/dL (Less than 2)
[2019-11-01 00:21] LABS: #Eosinphils 0.3 thou/uL (0.0-0.7); #Lymphocytes 2.1 thou/uL (1.20-3.40); #Monocytes 0.6 thou/uL (0.11-0.59); #Neutrophils 3.2 thou/uL (1.40-6.50); %Basophils 0.7 % (0.0-1.0); %Eosinophils 5.3 % (0.0-10.0); %Lymphocytes 33.1 % (21.0-51.0); %Monocytes 9.9 % (0.0-10.0); %Neutrophils 51.1 % (42.0-75.0); Hemoglobin 11.3 g/dL (12.0-16.0); Mean Corpuscular HGB CONC 32.7 g/dL (32.0-36.0); Mean Corpuscular Hemoglobin 26.8 pg (27.0-31.0); Mean Corpuscular Volume 82.1 fL (78.0-98.0); Mean Platelet Volume 9.9 fL (7.4-10.4); Platelet Count 194 thou/uL (130-400); RBC Distribution Width 14.3 % (11.5-14.5); White Blood Cell (WBC) Count 6.3 thou/uL (4.8-10.8)
[2019-11-01 00:26] LABS: Base Excess-Venous 9.6 mmol/L (-2.0 to 3.0); Bicarbonate (HCO3v) 33.1 mmol/L (22.0-28.0); CO2 Tension (PvCO2) 39.5 mmHg (40.0-50.0); Calcium, Ionized 1.02 mmol/L (See Comments:); Chloride 89 mmol/L (98-107); Hemoglobin - Calc 12.2 g/dL (12.0-16.0); Potassium 2.5 mmol/L (3.5-5.1); Sodium 134 mmol/L (138-145); T. Carbon Dioxide 34.3 mmol/L (22.0-28.0)
[2019-11-01 00:34] LABS: ALT (SGPT) 8 U/L (8-55); AST (SGOT) 13 U/L (5-34); Albumin 3.5 g/dL (3.4-4.8); Alkaline Phosphatase 122 U/L (40-110); Anion Gap 15 mmol/L (10-20); BUN (Urea Nitrogen) 17 mg/dL (9.8-20.1); Bilirubin, Total 0.4 mg/dL (0.2-1.2); Calc. Creatinine Clearance 0 mL/min (70-130); Calcium 9.2 mg/dL (7.8-10.44); Carbon Dioxide 32 mmol/L (23-31); Chloride 90 mmol/L (98-107); Estimated GFR-MDRD 44; Globulin 3.7 g/dL (2.4-3.5); Glucose 424 mg/dL (80-115); Protein, Total 7.2 g/dL (6.0-8.3); Sodium 134 mmol/L (136-145)
[2019-11-01 00:39] LABS: Potassium 2.8 mmol/L (3.5-5.1)
[2019-11-01 01:07] LABS: CKMB 1.3 ng/mL (0-6.6)
[2019-11-01] MEDS ORDERED: Potassium Chloride 20 MEQ TAB ONE (01:07)
[2019-11-01] MEDS ORDERED: Aspirin 325 MG TAB ONE (01:07)
[2019-11-01] MEDS ORDERED: cefTRIAXone\\ROCEPHIN 2 GM VIAL ONE (01:07)
[2019-11-01] MEDS ORDERED: Dextrose 5% in Water 1,000 ML IV PRN (01:22)
[2019-11-01] MEDS ORDERED: Dextrose 50% Abboject 50 ML SYRINGE SLOW IVP PRN (01:22)
[2019-11-01] MEDS ORDERED: Azithromycin 500 MG VIAL ONE (03:20)
[2019-11-01 03:35] LABS: Anion Gap 14 mmol/L (10-20); BUN (Urea Nitrogen) 17 mg/dL (9.8-20.1); Calc. Creatinine Clearance 0 mL/min (70-130); Calcium 9.2 mg/dL (7.8-10.44); Carbon Dioxide 34 mmol/L (23-31); Chloride 90 mmol/L (98-107); Estimated GFR-MDRD 49; Glucose 371 mg/dL (80-115); Sodium 135 mmol/L (136-145)
[2019-11-01 03:41] LABS: Troponin I 0.044 ng/mL (< 0.028)
[2019-11-01 03:43] LABS: Potassium 2.9 mmol/L (3.5-5.1)
[2019-11-01] MEDS ORDERED: Potassium Chloride 20 MEQ TAB PO SCH (04:00)
[2019-11-01] MEDS: NS 0.9% w/ 20 MEQ KCL 1,000 ML/1,000 ML BAG IV SCH ×2 (05:10→16:44)
[2019-11-01 05:33] VITALS: BMI 46.3
[2019-11-01] MEDS: HumaLOG 300 UNITS/3 ML VIAL SC PRN ×3 (06:36→17:54)
[2019-11-01 06:59] LABS: Troponin I 0.041 ng/mL (< 0.028)
[2019-11-01 08:58] LABS: Anion Gap 12 mmol/L (10-20); BUN (Urea Nitrogen) 16 mg/dL (9.8-20.1); Calc. Creatinine Clearance 83 mL/min (70-130); Calcium 8.8 mg/dL (7.8-10.44); Carbon Dioxide 36 mmol/L (23-31); Chloride 93 mmol/L (98-107); Estimated GFR-MDRD 55; Glucose 224 mg/dL (80-115); Sodium 138 mmol/L (136-145)
[2019-11-01] MEDS ORDERED: Non-Formulary Item 1 EACH (Omeprazole [Omeprazole] 40 MG) PO SCH (09:00)
[2019-11-01] MEDS ORDERED: INSULIN DETEMIR 30 UNIT SC SCH (09:00)
[2019-11-01] MEDS ORDERED: Non-Formulary Item 1 EACH (Rosuvastatin Calcium [Crestor] 40 MG) PO SCH (09:00)
[2019-11-01 09:05] LABS: Potassium 2.8 mmol/L (3.5-5.1)
[2019-11-01] MEDS ORDERED: guaiFENesin/Codeine Phosphate 200 mg/20 mg 10 ml UD Cup PO PRN (09:23)
[2019-11-01] MEDS: Aspirin 81 mg Enteric Coated Tablet PO SCH (09:50)
[2019-11-01] MEDS: Potassium Chloride 10 MEQ TAB PO SCH ×2 (09:50→21:26)
[2019-11-01] MEDS: Losartan 25 MG TAB PO SCH (09:51)
[2019-11-01] MEDS: Benzonatate 100 MG CAP PO PRN ×2 (09:52→17:55)
[2019-11-01] MEDS: Potassium Chloride 10 MEQ in Premix Bag 1 BAG IVPB SCH ×2 (10:31→10:50)
[2019-11-01] MEDS ORDERED: Magnesium 2 GM/50 ML 2 GM in Premix Bag 1 BAG IVPB SCH (17:30)
[2019-11-01] MEDS ORDERED: methylPREDNISolone Sod Succ 40 MG VIAL IVP SCH (17:30)
[2019-11-01 17:43] LABS: Anion Gap 13 mmol/L (10-20); BUN (Urea Nitrogen) 12 mg/dL (9.8-20.1); Calc. Creatinine Clearance 88 mL/min (70-130); Calcium 9.1 mg/dL (7.8-10.44); Carbon Dioxide 34 mmol/L (23-31); Chloride 95 mmol/L (98-107); Estimated GFR-MDRD 59; Glucose 190 mg/dL (80-115); Potassium 3.1 mmol/L (3.5-5.1); Sodium 139 mmol/L (136-145)
[2019-11-01] MEDS: Rosuvastatin 20 MG TAB PO SCH (21:25)
[2019-11-01] MEDS: Montelukast Sodium 10 mg Tablet PO SCH (21:26)
[2019-11-01] MEDS: Insulin Glargine 30 UNITS in Pre-Filled Syringe 1 EACH SC SCH (21:27)
[2019-11-01] MEDS ORDERED: Acetaminophen 325 MG TAB PO PRN (22:43)
--- NOTE | 2019-11-02 00:30 | HP ---
CHIEF COMPLAINT: Shortness of breath. HISTORY OF PRESENT ILLNESS: The patient is a very pleasant 69-year-old female who stated that she recently was diagnosed with flu and has been on Tamiflu. No antibiotics. However, she stated that initially she got better; however, started having worsening shortness of breath, cough and congestion. She also started having a sore throat and significant amount of cough, but no significant sputum production. So at this time, she came into the ER for further evaluation. She denies any chest tightness. PAST MEDICAL HISTORY: 1. The patient has a history of congestive heart failure with an EF of 30% from previous echos. 2. History of a pacemaker and defibrillator. 3. Diabetes. 4. Hypertension. 5. Hyperlipidemia. PAST SURGICAL HISTORY: She has had a lymph node removed from the neck, cholecystectomy, and hysterectomy. SOCIAL HISTORY: She used to smoke, but quit more than 10 years ago. She denies any alcohol use or drug use and she is a full code. FAMILY HISTORY: Father in the 80s with heart problems and mother had Alzheimer's dementia. REVIEW OF SYSTEMS: All negative except for the ones mentioned above in the HPI. PHYSICAL EXAMINATION: VITAL SIGNS: Are as of the following her temperature is 98.9, 80, 18, 95% on room air, 118/70. GENERAL: She is awake, alert, oriented x3. She does not appear in any respiratory distress. CV: S1, S2 present. No murmurs, rubs, gallops. LUNGS: Mild expiratory wheezing heard all over lungs. ABDOMEN: Soft and nontender. Bowel sounds are present x2. EXTREMITIES: No edema. Pedal pulses are present x2. NEUROVASCULAR: There are no focal deficits noted. SKIN: No cuts, lesions or bruises noted. LABORATORY RESULTS: As of the following; WBCs of 6.3, hemoglobin of 11.3, hematocrit of 34.5, platelets of 194. Chemistry: Sodium of 138, potassium of 2.8, BUN of 16, creatinine of 1.18. Her magnesium was 1.4. IMAGING: The patient's chest x-ray indicated a right upper lung possible pneumonia. ALLERGIES: WATERMELON. MEDICATIONS: As of the followin. She is on carvedilol 25 mg twice daily. 2. She is also on isosorbide 10 mg twice daily. 3. She is on spironolactone 25 mg daily. 4. She is on torsemide 40 mg daily. 5. She is on aspirin 81 mg daily.. 6. She is on Lantus 30 units daily. 7. She is on losartan 50 mg daily. 8. She is on Singulair 5 mg one daily. 9. She is on omeprazole 40 mg daily. 10. Potassium 10 mEq twice daily. 11. Rosuvastatin 20 mg daily. ASSESSMENT AND PLAN: The patient is a very pleasant 69-year-old female who presents to the hospital with complaints of worsening shortness of breath. 1. Pneumonia. According to her, she had the flu and she was put on Tamiflu. No antibiotics were started on her. She does have a right upper lobe haziness on the chest x-ray. We will start her on community-acquired pneumonia and antibiotics. We will start her on some cough medication and also DuoNeb. 2. Diabetes, uncontrolled. We will continue her home medications and also put on a sliding scale. 3. Hypertension. Currently, she has been a bit hypotensive. We will continue to monitor and hold off on some of her blood pressure medications. 4. Electrolyte abnormalities. We will replace her potassium and her magnesium. We will continue to monitor. 5. Deep venous thrombosis prophylaxis. The patient is on enoxaparin. 6. Acute kidney injury, mild, improving, most likely prerenal. Job ID: [id number]
[2019-11-02 05:27] LABS: Anion Gap 16 mmol/L (10-20); BUN (Urea Nitrogen) 11 mg/dL (9.8-20.1); Calc. Creatinine Clearance 93 mL/min (70-130); Calcium 9.3 mg/dL (7.8-10.44); Carbon Dioxide 26 mmol/L (23-31); Chloride 97 mmol/L (98-107); Estimated GFR-MDRD 63; Glucose 308 mg/dL (80-115); Sodium 135 mmol/L (136-145)
[2019-11-02] MEDS: HumaLOG 300 UNITS/3 ML VIAL SC PRN ×2 (06:36→11:06)
[2019-11-02] MEDS ORDERED: MONTELUKAST SODIUM PO SCH (09:00)
[2019-11-02] MEDS ORDERED: methylPREDNISolone Sod Succ 40 MG VIAL IVP SCH (09:00)
[2019-11-02] MEDS ORDERED: Non-Formulary Item 1 EACH (Losartan Potassium [Losartan Potassium] 1 TAB) PO SCH (09:00)
[2019-11-02] MEDS: Aspirin 81 mg Enteric Coated Tablet PO SCH (09:56)
[2019-11-02] MEDS: Enoxaparin Sodium 40 MG/0.4 ML SYRINGE SC SCH (09:57)
[2019-11-02] MEDS: Losartan 25 MG TAB PO SCH (09:58)
[2019-11-02] MEDS: Potassium Chloride 10 MEQ TAB PO SCH ×2 (10:05→21:44)
--- NOTE | 2019-11-02 14:16 | PDOC.HOSPP ---
- Subjective Encounter Date: 11/02/19 Encounter Time: 11:55 Subjective: pt up in bed no complains, she still has some cough. - Objective Vital Signs & Weight: Vital Signs (12 hours) Temp Pulse Resp BP Pulse Ox 11/02/19 11:00 98.7 F 73 18 151/77 H 97 11/02/19 09:54 96 11/02/19 07:00 98.1 F 76 20 136/81 96 11/02/19 04:10 95 11/02/19 03:28 97.3 F L 61 20 151/77 H 95 Weight Weight 253 lb I&O: 11/01/19 11/02/19 11/03/19 06:59 06:59 06:59 Intake Total 624 Output Total 925 Balance -301 Result Diagrams: 11/01/19 00:10 11/02/19 04:45 Additional Labs: Accuchecks 11/02/19 11/02/19 11/01/19 10:42 05:38 19:49 POC Glucose 381 H 285 H 208 H 11/01/19 16:59 POC Glucose 203 H Hospitalist ROS - Review of Systems Respiratory: denies: cough, dry, shortness of breath, hemoptysis, SOB with excertion, pleuritic pain, sputum, wheezing, other Cardiovascular: denies: chest pain, palpitations, orthopnea, paroxysmal noc. dyspnea, edema, light headedness, other Gastrointestinal: denies: nausea, vomiting, abdominal pain, diarrhea, constipation, melena, hematochezia, other - Medication Medications: Active Medications Generic Name Dose Route Start Last Admin Trade Name Freq PRN Reason Stop Dose Admin Acetaminophen 650 mg 11/01/19 22:43 11/01/19 23:28 Tylenol PO 650 mg Q6H PRN Administration Headache, Aches or Pain Albuterol/Ipratropium 3 ml 11/01/19 09:24 11/01/19 23:40 Duoneb NEB 3 ml [id number] PRN Administration SOB &/or Wheezing Aspirin 81 mg 11/01/19 09:00 11/02/19 09:56 Ecotrin PO 81 mg DAILY CALE Administration Benzonatate 100 mg 11/01/19 09:23 11/01/19 17:55 Tessalon PO 100 mg TIDPRN PRN Administration Cough Enoxaparin Sodium 40 mg 11/02/19 09:00 11/02/19 09:57 Lovenox SC 40 mg 0900 CALE Administration Guaifenesin/Codeine Phosphate 10 ml 11/01/19 09:23 11/01/19 09:52 Robitussin Ac PO 10 ml BID PRN Administration Cough Insulin Glargine 30 units/ 0.3 mls @ 0 mls/hr 11/01/19 21:00 11/01/19 21:27 Miscellaneous Medication SC 0.3 mls HS CALE Administration Levofloxacin 750 mg/ Device 150 mls @ 100 mls/hr 11/01/19 18:00 11/01/19 21: 28 IVPB 150 mls Q24HR CALE Administration Insulin Human Lispro 0 units 11/01/19 01:22 11/02/19 11:06 Humalog SC 10 units .MODERATE SLIDING SC PRN Administration Moderate Correctional Scale Losartan Potassium 50 mg 11/01/19 09:00 11/02/19 09:58 Cozaar PO 50 mg DAILY CALE Administration Methylprednisolone Sodium Succinate 20 mg 11/02/19 09:00 11/02/19 09:59 Solu-Medrol IVP 20 mg DAILY CALE Administration Montelukast Sodium 10 mg 11/01/19 21:00 11/01/19 21:26 Singulair PO 10 mg QPM CALE Administration Pantoprazole Sodium 40 mg 11/01/19 09:00 11/02/19 10:05 Protonix PO 40 mg DAILY CALE Administration Potassium Chloride 10 meq 11/01/19 09:00 11/02/19 10:05 Klor-Con 10 PO 10 meq BID CALE Administration Rosuvastatin Calcium 40 mg 11/01/19 21:00 11/01/19 21:25 Crestor PO 40 mg HS CALE Administration Sodium Chloride 10 ml 11/01/19 09:00 11/02/19 10:06 Flush - Normal Saline IVF 10 ml Q12HR CALE Administration - Exam Neck: negative: supple, symmetric, no JVD, no thyromegaly, no lymphadenopathy, no carotid bruit, JVD Heart: negative: RRR, no murmur, no gallops, no rubs, normal peripheral pulses, irregular, diminshed peripheral pulses, murmur present, II/IV, III/IV Respiratory: negative: CTAB, no wheezes, no rales, no ronchi, normal chest expansion, no tachypnea, normal percussion, rales, rhonchi, tachypneic, wheezes Gastrointestinal: negative: soft, non-tender, non-distended, normal bowel sounds , no palpable masses, no hepatomegaly, no splenomegaly, no bruit, no guarding, no rigidity, tender to palpation, distended, diminished bowl sounds, voluntary guarding Hosp A/P (1) Pneumonia Code(s): J18.9 - PNEUMONIA, UNSPECIFIED ORGANISM Status: Acute (2) CAD (coronary artery disease) Code(s): I25.10 - ATHSCL HEART DISEASE OF [place] CORONARY ARTERY W/O ANG PCTRS Status: Chronic (3) DM type 2 (diabetes mellitus, type 2) Status: Chronic (4) HTN (hypertension) Code(s): I10 - ESSENTIAL (PRIMARY) HYPERTENSION Status: Chronic - Plan will continue her abx for now. she states she feels better today than yesterday. will change her steroids to oral. will start her home meds.
[2019-11-02] MEDS: HumaLOG 300 UNITS/3 ML VIAL SC SCH (17:06)
[2019-11-02] MEDS: Insulin Glargine 30 UNITS in Pre-Filled Syringe 1 EACH SC SCH (21:43)
[2019-11-02] MEDS: Rosuvastatin 20 MG TAB PO SCH (21:44)
[2019-11-02] MEDS: Isosorbide Dinitrate 20 MG TAB PO SCH (21:45)
[2019-11-02] MEDS: Carvedilol 25 MG TAB PO SCH (21:46)
[2019-11-02] MEDS: Montelukast Sodium 10 mg Tablet PO SCH (21:46)
[2019-11-03] MEDS: HumaLOG 300 UNITS/3 ML VIAL SC PRN ×3 (00:15→22:43)
[2019-11-03] MEDS: Isosorbide Dinitrate 20 MG TAB PO SCH ×2 (08:34→22:41)
[2019-11-03] MEDS: Aspirin 81 mg Enteric Coated Tablet PO SCH (08:34)
[2019-11-03] MEDS: Alogliptin 25 MG TAB PO SCH (08:35)
[2019-11-03] MEDS: Potassium Chloride 10 MEQ TAB PO SCH ×2 (08:36→22:33)
[2019-11-03] MEDS: Torsemide 20 MG TAB PO SCH (08:36)
[2019-11-03] MEDS: Spironolactone 25 MG TAB PO SCH (08:37)
[2019-11-03] MEDS: predniSONE 20 MG TAB PO SCH (08:37)
[2019-11-03] MEDS: Enoxaparin Sodium 40 MG/0.4 ML SYRINGE SC SCH (08:41)
[2019-11-03] MEDS: HumaLOG 300 UNITS/3 ML VIAL SC SCH ×3 (08:41→17:10)
[2019-11-03 09:56] LABS: #Eosinphils 0.1 thou/uL (0.0-0.7); #Lymphocytes 3.1 thou/uL (1.20-3.40); #Monocytes 0.6 thou/uL (0.11-0.59); #Neutrophils 5.9 thou/uL (1.40-6.50); %Basophils 0.1 % (0.0-1.0); %Eosinophils 1.1 % (0.0-10.0); %Lymphocytes 32.3 % (21.0-51.0); %Neutrophils 60.5 % (42.0-75.0); Hemoglobin 11.9 g/dL (12.0-16.0); Mean Corpuscular Hemoglobin 26.4 pg (27.0-31.0); Mean Corpuscular Volume 82.4 fL (78.0-98.0); Mean Platelet Volume 9.6 fL (7.4-10.4); Platelet Count 252 thou/uL (130-400); RBC Distribution Width 14.5 % (11.5-14.5); Red Blood Cell (RBC) Count 4.49 mill/uL (4.20-5.40); White Blood Cell (WBC) Count 9.7 thou/uL (4.8-10.8)
[2019-11-03 10:04] LABS: Anion Gap 13 mmol/L (10-20); BUN (Urea Nitrogen) 17 mg/dL (9.8-20.1); Calc. Creatinine Clearance 84 mL/min (70-130); Calcium 9.6 mg/dL (7.8-10.44); Carbon Dioxide 30 mmol/L (23-31); Chloride 97 mmol/L (98-107); Estimated GFR-MDRD 58; Glucose 261 mg/dL (80-115); Potassium 3.6 mmol/L (3.5-5.1); Sodium 136 mmol/L (136-145)
[2019-11-03] MEDS: Carvedilol 25 MG TAB PO SCH ×2 (11:59→22:35)
[2019-11-03] MEDS: Losartan 25 MG TAB PO SCH (12:00)
--- NOTE | 2019-11-03 15:18 | PDOC.HOSPP ---
- Subjective Encounter Date: 11/03/19 Encounter Time: 10:00 Subjective: pt up in bed still feels a bit sob. - Objective Vital Signs & Weight: Vital Signs (12 hours) Temp Pulse Resp BP Pulse Ox 11/03/19 11:46 98.5 F 86 24 H 124/65 96 11/03/19 10:20 65 120/70 11/03/19 08:32 94 L 11/03/19 07:30 97.5 F L 63 18 126/69 94 L 11/03/19 04:00 97.7 F 65 16 118/65 95 Weight Weight 247 lb 6.4 oz I&O: 11/02/19 11/03/19 11/04/19 06:59 06:59 06:59 Intake Total 624 990 120 Output Total 245 803 7939 Balance -301 390 1480 Result Diagrams: 11/03/19 09:42 11/03/19 09:42 Additional Labs: Accuchecks 11/03/19 11/03/19 11/03/19 10:34 08:13 05:49 POC Glucose 224 H 284 H 264 H 11/03/19 11/02/19 11/02/19 00:18 21:24 16:43 POC Glucose 336 H 336 H 374 H Hospitalist ROS - Review of Systems Respiratory: denies: cough, dry, shortness of breath, hemoptysis, SOB with excertion, pleuritic pain, sputum, wheezing, other Cardiovascular: denies: chest pain, palpitations, orthopnea, paroxysmal noc. dyspnea, edema, light headedness, other Gastrointestinal: denies: nausea, vomiting, abdominal pain, diarrhea, constipation, melena, hematochezia, other Genitourinary: denies: dysuria, frequency, incontinence, hematuria, retention, other - Medication Medications: Active Medications Generic Name Dose Route Start Last Admin Trade Name Freq PRN Reason Stop Dose Admin Acetaminophen 650 mg 11/01/19 22:43 11/01/19 23:28 Tylenol PO 650 mg Q6H PRN Administration Headache, Aches or Pain Albuterol/Ipratropium 3 ml 11/01/19 09:24 11/01/19 23:40 Duoneb NEB 3 ml [id number] PRN Administration SOB &/or Wheezing Alogliptin Benzoate 25 mg 11/03/19 09:00 11/03/19 08:35 Alogliptin PO 25 mg DAILY CALE Administration Aspirin 81 mg 11/01/19 09:00 11/03/19 08:34 Ecotrin PO 81 mg DAILY CALE Administration Benzonatate 100 mg 11/01/19 09:23 11/01/19 17:55 Tessalon PO 100 mg TIDPRN PRN Administration Cough Carvedilol 25 mg 11/02/19 21:00 11/03/19 11:59 Coreg PO Not Given BID [facility] Enoxaparin Sodium 40 mg 11/02/19 09:00 11/03/19 08:41 Lovenox SC 40 mg 0900 CALE Administration Guaifenesin/Codeine Phosphate 10 ml 11/01/19 09:23 11/01/19 09:52 Robitussin Ac PO 10 ml BID PRN Administration Cough Insulin Glargine 30 units/ 0.3 mls @ 0 mls/hr 11/01/19 21:00 11/02/19 21:43 Miscellaneous Medication SC 0.3 mls HS CALE Administration Levofloxacin 750 mg/ Device 150 mls @ 100 mls/hr 11/01/19 18:00 11/02/19 17: 07 IVPB 150 mls Q24HR CALE Administration Insulin Human Lispro 0 units 11/01/19 01:22 11/03/19 07:00 Humalog SC 6 units .MODERATE SLIDING SC PRN Administration Moderate Correctional Scale Insulin Human Lispro 0 units 11/02/19 23:18 11/03/19 00:15 Humalog SC 4 unit .BEDTIME SLIDING SC PRN Administration Bedtime Correctional Scale Isosorbide Dinitrate 10 mg 11/02/19 21:00 11/03/19 08:34 Isordil PO 10 mg BID CALE Administration Losartan Potassium 50 mg 11/01/19 09:00 11/03/19 12:00 Cozaar PO Not Given DAILY [facility] Montelukast Sodium 10 mg 11/01/19 21:00 11/02/19 21:46 Singulair PO 10 mg QPM CALE Administration Pantoprazole Sodium 40 mg 11/01/19 09:00 11/03/19 08:35 Protonix PO 40 mg DAILY CALE Administration Potassium Chloride 10 meq 11/01/19 09:00 11/03/19 08:36 Klor-Con 10 PO 10 meq BID CALE Administration Prednisone 40 mg 11/03/19 08:00 11/03/19 08:37 Prednisone PO 40 mg QAM-WM CALE Administration Rosuvastatin Calcium 40 mg 11/01/19 21:00 11/02/19 21:44 Crestor PO 40 mg HS CALE Administration Sodium Chloride 10 ml 11/01/19 09:00 11/03/19 08:42 Flush - Normal Saline IVF 10 ml Q12HR CALE Administration Spironolactone 25 mg 11/03/19 09:00 11/03/19 08:37 Aldactone PO 25 mg DAILY CALE Administration Torsemide 40 mg 11/03/19 09:00 11/03/19 08:36 Demadex PO 40 mg DAILY CALE Administration - Exam Neck: negative: supple, symmetric, no JVD, no thyromegaly, no lymphadenopathy, no carotid bruit, JVD Heart: negative: RRR, no murmur, no gallops, no rubs, normal peripheral pulses, irregular, diminshed peripheral pulses, murmur present, II/IV, III/IV Respiratory: rhonchi, wheezes Gastrointestinal: negative: soft, non-tender, non-distended, normal bowel sounds , no palpable masses, no hepatomegaly, no splenomegaly, no bruit, no guarding, no rigidity, tender to palpation, distended, diminished bowl sounds, voluntary guarding Hosp A/P (1) Pneumonia Code(s): J18.9 - PNEUMONIA, UNSPECIFIED ORGANISM Status: Acute (2) CAD (coronary artery disease) Code(s): I25.10 - ATHSCL HEART DISEASE OF [place] CORONARY ARTERY W/O ANG PCTRS Status: Chronic (3) DM type 2 (diabetes mellitus, type 2) Status: Chronic (4) HTN (hypertension) Code(s): I10 - ESSENTIAL (PRIMARY) HYPERTENSION Status: Chronic - Plan will continue her abx for now. she states she feels better today than yesterday. will change her steroids to oral. will start her home meds. 11/02 will start her on scheduled duonebs. continue steroids. will encourage her use IS. PT has been ordered for ambulation.
[2019-11-03] MEDS: Rosuvastatin 20 MG TAB PO SCH (22:33)
[2019-11-03] MEDS: Montelukast Sodium 10 mg Tablet PO SCH (22:34)
[2019-11-03] MEDS: Insulin Glargine 30 UNITS in Pre-Filled Syringe 1 EACH SC SCH (22:36)
[2019-11-04] MEDS ORDERED: Melatonin 3 MG TAB PO SCH ×2 (02:00→21:00)
[2019-11-04] MEDS ORDERED: Losartan 25 MG TAB PO SCH (09:00)
[2019-11-04] MEDS ORDERED: Carvedilol 6.25 MG TAB PO SCH (09:00)
[2019-11-04] MEDS ORDERED: Carvedilol 25 MG TAB PO SCH (09:15)
[2019-11-04] MEDS: Enoxaparin Sodium 40 MG/0.4 ML SYRINGE SC SCH (09:49)
[2019-11-04] MEDS: HumaLOG 300 UNITS/3 ML VIAL SC SCH ×3 (09:49→17:56)
[2019-11-04] MEDS: predniSONE 20 MG TAB PO SCH (09:50)
[2019-11-04] MEDS: Aspirin 81 mg Enteric Coated Tablet PO SCH (09:50)
[2019-11-04] MEDS: Alogliptin 25 MG TAB PO SCH (09:50)
[2019-11-04] MEDS: Isosorbide Dinitrate 20 MG TAB PO SCH (09:52)
[2019-11-04] MEDS: Potassium Chloride 10 MEQ TAB PO SCH (09:52)
[2019-11-04] MEDS: Torsemide 20 MG TAB PO SCH (09:54)
[2019-11-04] MEDS: Spironolactone 25 MG TAB PO SCH (09:55)
[2019-11-04 10:14] LABS: Anion Gap 10 mmol/L (10-20); BUN (Urea Nitrogen) 21 mg/dL (9.8-20.1); Calc. Creatinine Clearance 87 mL/min (70-130); Calcium 9.9 mg/dL (7.8-10.44); Carbon Dioxide 34 mmol/L (23-31); Chloride 96 mmol/L (98-107); Estimated GFR-MDRD 60; Glucose 217 mg/dL (80-115); Potassium 3.5 mmol/L (3.5-5.1); Sodium 136 mmol/L (136-145)
[2019-11-04] MEDS: Losartan 25 MG TAB PO SCH (10:25)
[2019-11-04] MEDS: Carvedilol 25 MG TAB PO SCH (10:25)
[2019-11-04 11:48] VITALS: TEMP 97.6
[2019-11-04 14:30] VITALS: BP 131/70
== END 2019-11-04 18:15 | disposition home health service (06) | DRG 194 ==
LOC: ERS 23:13 → 2SE 11-01 04:25
PROVIDERS: ADMIT Internal Medicine; ATTEND Internal Medicine
DX: J18.9 Pneumonia, unspecified organism (principal); N17.9 Acute kidney failure, unspecified; I50.9 Heart failure, unspecified; I11.0 Hypertensive heart disease with heart failure; E87.6 Hypokalemia; E11.65 Type 2 diabetes mellitus with hyperglycemia; E78.5 Hyperlipidemia, unspecified; I25.10 Atherosclerotic heart disease of native coronary artery without angina pectoris; I25.2 Old myocardial infarction; Z87.891 Personal history of nicotine dependence; Z91.018 Allergy to other foods; Z79.899 Other long term (current) drug therapy; Z90.710 Acquired absence of both cervix and uterus; Z90.49 Acquired absence of other specified parts of digestive tract; Z95.810 Presence of automatic (implantable) cardiac defibrillator; Z79.4 Long term (current) use of insulin
CPT/HCPCS: 36415; 36416; 71045; 80048; 80053; 81003; 82010; 82330; 82553; 82803; 83735; 84484; 85025; 93005; 94640; 96361; 96365; 96367; J0456; J0696; J1650; J1815; J1956; J2920; J3475; J3480; J7512; J7620

== ENCOUNTER 2021-03-06 15:46 | Emergency (ER) | payer MEDICARE, MEDICAID ==
[~2021-03-06 15:46] MED LIST changes: -ISOVUE-370 76%-LOCM 1 ML ONE; +Iopamidol 370 76% 100 ML VIAL ONE
[2021-03-06] MEDS ORDERED: Morphine 4 MG/ML VIAL ONE (16:43)
[2021-03-06] MEDS ORDERED: Ondansetron PF 4 MG/2 ML Vial ONE (16:43)
[2021-03-06 16:58] LABS: Bacteria/HPF 3+ HPF (None Seen); Bilirubin Negative (Negative); Blood, Urine 1+ (Negative); Clarity Extra Turbid (Clear); Glucose, Urine (Dipstick) 100 mg/dL (Negative); Ketone, Urine Negative (Negative); Leukocyte 500 Leu/uL (Negative); Nitrite Negative (Negative); Protein, Urine (Dipstick) 50 mg/dL (Neg-Trace); RBC/HPF Greater than 50 HPF (0-3); Specific Gravity, Urine 1.014 (1.002-1.036); Squamous Epithelial Greater than 50 HPF (0-3); Urobilinogen Normal mg/dL (Less than 2); WBC/HPF Greater than 50 HPF (0-3)
[2021-03-06 17:22] LABS: ALT (SGPT) Less than 7 U/L (8-55); AST (SGOT) 14 U/L (5-34); Albumin 3.8 g/dL (3.4-4.8); Alkaline Phosphatase 124 U/L (40-110); Anion Gap 17 mmol/L (10-20); BUN (Urea Nitrogen) 30 mg/dL (9.8-20.1); Bilirubin, Total 0.4 mg/dL (0.2-1.2); Calc. Creatinine Clearance 0 mL/min (70-130); Carbon Dioxide 23 mmol/L (23-31); Chloride 98 mmol/L (98-107); Glucose 153 mg/dL (80-115); Lipase 180 U/L (8-78); Potassium 3.8 mmol/L (3.5-5.1); Protein, Total 7.8 g/dL (5.8-8.1); Sodium 134 mmol/L (136-145)
[2021-03-06 17:44] LABS: #Eosinphils 0.3 thou/uL (0.0-0.7); #Lymphocytes 3.4 thou/uL (1.20-3.40); #Monocytes 0.9 thou/uL (0.11-0.59); #Neutrophils 7.8 thou/uL (1.40-6.50); %Basophils 0.4 % (0.0-1.0); %Eosinophils 2.1 % (0.0-10.0); %Lymphocytes 27.1 % (21.0-51.0); %Monocytes 7.1 % (0.0-10.0); %Neutrophils 63.3 % (42.0-75.0); Hemoglobin 10.2 g/dL (12.0-16.0); Mean Corpuscular HGB CONC 33.1 g/dL (32.0-36.0); Mean Corpuscular Hemoglobin 28.4 pg (27.0-31.0); Mean Corpuscular Volume 85.9 fL (78.0-98.0); Mean Platelet Volume 8.9 fL (7.4-10.4); Platelet Count 335 thou/uL (130-400); RBC Distribution Width 12.5 % (11.5-14.5); Red Blood Cell (RBC) Count 3.59 mill/uL (4.20-5.40); White Blood Cell (WBC) Count 12.4 thou/uL (4.8-10.8)
[2021-03-06] MEDS ORDERED: cefTRIAXone\\ROCEPHIN 1 GM VIAL ONE (18:45)
== END 2021-03-06 19:31 | disposition home or self-care (01) ==
LOC: ERS 15:46
DX: N39.0 Urinary tract infection, site not specified (principal); I25.2 Old myocardial infarction; I11.0 Hypertensive heart disease with heart failure; I50.9 Heart failure, unspecified; E11.9 Type 2 diabetes mellitus without complications; E78.5 Hyperlipidemia, unspecified; J45.909 Unspecified asthma, uncomplicated; Z87.891 Personal history of nicotine dependence; Z79.899 Other long term (current) drug therapy
CPT/HCPCS: 74177; 80053; 81003; 81015; 83690; 85025; 87086; 93005; 96365; 96375; J0696; J2270; J2405; Q9967

== ENCOUNTER 2021-09-28 13:47 | Inpatient (IN) | payer MEDICARE, MEDICAID ==
[2021-09-28] MEDS ORDERED: Acetaminophen 500 MG TAB ONE (14:35)
[2021-09-28 14:42] LABS: #Eosinphils 0.1 thou/uL (0.0-0.7); #Lymphocytes 1.1 thou/uL (1.20-3.40); #Monocytes 0.6 thou/uL (0.11-0.59); #Neutrophils 5.2 thou/uL (1.40-6.50); %Basophils 0.4 % (0.0-1.0); %Eosinophils 1.4 % (0.0-10.0); %Monocytes 8.6 % (0.0-10.0); %Neutrophils 74.7 % (42.0-75.0); Hemoglobin 10.4 g/dL (12.0-16.0); Mean Corpuscular Hemoglobin 27.8 pg (27.0-31.0); Mean Corpuscular Volume 84.3 fL (78.0-98.0); Mean Platelet Volume 8.3 fL (7.4-10.4); Platelet Count 273 thou/uL (130-400); RBC Distribution Width 12.5 % (11.5-14.5); Red Blood Cell (RBC) Count 3.73 mill/uL (4.20-5.40)
[2021-09-28 15:05] LABS: ALT (SGPT) 10 U/L (8-55); AST (SGOT) 14 U/L (5-34); Albumin 3.8 g/dL (3.4-4.8); Alkaline Phosphatase 141 U/L (40-110); Anion Gap 14 mmol/L (10-20); BUN (Urea Nitrogen) 41 mg/dL (9.8-20.1); Bilirubin, Total 0.3 mg/dL (0.2-1.2); Calc. Creatinine Clearance 0 mL/min (70-130); Calcium 10.3 mg/dL (7.8-10.44); Carbon Dioxide 28 mmol/L (23-31); Chloride 97 mmol/L (98-107); Globulin 3.9 g/dL (2.4-3.5); Glucose 353 mg/dL (80-115); Potassium 4.2 mmol/L (3.5-5.1); Protein, Total 7.7 g/dL (5.8-8.1); Sodium 135 mmol/L (136-145)
[2021-09-28 15:28] LABS: CKMB 1.3 ng/mL (0-6.6)
[2021-09-28] MEDS ORDERED: Acetaminophen 325 MG TAB PO PRN (15:53)
[2021-09-28] MEDS ORDERED: Dextrose 50% Abboject 50 ML SYRINGE SLOW IVP PRN (15:53)
[2021-09-28] MEDS ORDERED: Dextrose 5% in Water 1,000 ML IV PRN (15:53)
[2021-09-28] MEDS ORDERED: Ondansetron PF 4 MG/2 ML Vial IVP PRN (15:53)
[2021-09-28 16:10] VITALS: BMI 43.9
[2021-09-28 19:35] LABS: Troponin I 1.392 ng/mL (< 0.028)
[2021-09-28] MEDS: Famotidine 20 MG TAB PO SCH (21:43)
[2021-09-28 22:58] LABS: Troponin I 1.619 ng/mL (< 0.028)
[2021-09-29] MEDS ORDERED: Nitroglycerin 0.4 MG TAB (25 Tab Bottle) SL PRN (00:26)
[2021-09-29] MEDS ORDERED: Nitroglycerin 0.4 MG TAB (25 Tab Bottle) ONE (00:29)
[2021-09-29] MEDS ORDERED: Morphine 4 MG/ML VIAL SLOW IVP SCH (01:00)
[2021-09-29] MEDS ORDERED: Heparin 25,000 units/D5W 500 ML IV SCH (01:00)
[2021-09-29] MEDS ORDERED: Benzonatate 100 MG CAP PO PRN (01:11)
[2021-09-29] MEDS ORDERED: Morphine 4 MG/ML VIAL SLOW IVP PRN (01:13)
[2021-09-29 02:11] LABS: Prothrombin Time 13.8 sec (12.0-14.7)
[2021-09-29 02:12] LABS: PTT 46.5 sec (22.9-36.1)
[2021-09-29] MEDS ORDERED: Heparin 10,000 UNITS/ 10 ML VIAL SLOW IVP SCH (03:00)
[2021-09-29 05:04] LABS: #Eosinphils 0.2 thou/uL (0.0-0.7); #Lymphocytes 2.4 thou/uL (1.20-3.40); #Monocytes 0.9 thou/uL (0.11-0.59); #Neutrophils 4.2 thou/uL (1.40-6.50); %Basophils 0.5 % (0.0-1.0); %Eosinophils 2.6 % (0.0-10.0); %Lymphocytes 31.3 % (21.0-51.0); %Monocytes 11.6 % (0.0-10.0); %Neutrophils 54.1 % (42.0-75.0); Hemoglobin 9.5 g/dL (12.0-16.0); Mean Corpuscular HGB CONC 33.5 g/dL (32.0-36.0); Mean Corpuscular Hemoglobin 28.7 pg (27.0-31.0); Mean Corpuscular Volume 85.6 fL (78.0-98.0); Mean Platelet Volume 8.8 fL (7.4-10.4); Platelet Count 253 thou/uL (130-400); RBC Distribution Width 12.4 % (11.5-14.5); Red Blood Cell (RBC) Count 3.31 mill/uL (4.20-5.40); White Blood Cell (WBC) Count 7.7 thou/uL (4.8-10.8)
[2021-09-29 05:26] LABS: Anion Gap 14 mmol/L (10-20); BUN (Urea Nitrogen) 34 mg/dL (9.8-20.1); Calc. Creatinine Clearance 61 mL/min (70-130); Calcium 9.8 mg/dL (7.8-10.44); Carbon Dioxide 24 mmol/L (23-31); Chloride 99 mmol/L (98-107); Glucose 224 mg/dL (80-115); Potassium 3.7 mmol/L (3.5-5.1); Sodium 133 mmol/L (136-145)
[2021-09-29] MEDS ORDERED: Aspirin 81 mg Enteric Coated Tablet PO SCH (07:45)
[2021-09-29] MEDS: Enoxaparin Sodium 100 MG/ML SYRINGE SC SCH ×2 (08:33→19:47)
[2021-09-29] MEDS ORDERED: Enoxaparin Sodium 30 MG/0.3 ML SYRINGE SC SCH (09:00)
[2021-09-29] MEDS: Ezetimibe 10 MG TAB PO SCH (09:22)
[2021-09-29] MEDS: Losartan 25 MG TAB PO SCH (09:22)
[2021-09-29] MEDS: HumaLOG 300 UNITS/3 ML VIAL SC PRN ×2 (11:54→17:23)
[2021-09-29] MEDS: Carvedilol 6.25 MG TAB PO SCH (17:23)
[2021-09-29] MEDS: Famotidine 20 MG TAB PO SCH (19:47)
[2021-09-29] MEDS: Atorvastatin Calcium 40 MG TAB PO SCH (19:47)
[2021-09-30] MEDS ORDERED: Furosemide 40 MG/4 ML VIAL SLOW IVP SCH (09:30)
[2021-09-30] MEDS: Empagliflozin 10 MG TAB PO SCH (09:42)
[2021-09-30] MEDS: Losartan 25 MG TAB PO SCH (09:42)
[2021-09-30] MEDS: Carvedilol 6.25 MG TAB PO SCH ×2 (09:42→17:36)
[2021-09-30] MEDS: Aspirin 81 mg Enteric Coated Tablet PO SCH (09:42)
[2021-09-30] MEDS: Ezetimibe 10 MG TAB PO SCH (09:43)
[2021-09-30] MEDS: Enoxaparin Sodium 100 MG/ML SYRINGE SC SCH ×2 (09:43→20:15)
[2021-09-30] MEDS ORDERED: Potassium Chloride 20 MEQ TAB PO SCH (12:00)
[2021-09-30 13:29] LABS: #Basophils 0.1 thou/uL (0.0-0.2); #Eosinphils 0.5 thou/uL (0.0-0.7); #Lymphocytes 2.3 thou/uL (1.20-3.40); #Monocytes 0.7 thou/uL (0.11-0.59); #Neutrophils 3.7 thou/uL (1.40-6.50); %Basophils 0.7 % (0.0-1.0); %Eosinophils 6.8 % (0.0-10.0); %Lymphocytes 31.3 % (21.0-51.0); %Monocytes 9.8 % (0.0-10.0); %Neutrophils 51.4 % (42.0-75.0); Hemoglobin 10.1 g/dL (12.0-16.0); Mean Corpuscular Hemoglobin 27.7 pg (27.0-31.0); Mean Corpuscular Volume 83.9 fL (78.0-98.0); Mean Platelet Volume 8.3 fL (7.4-10.4); Platelet Count 241 thou/uL (130-400); RBC Distribution Width 12.4 % (11.5-14.5); Red Blood Cell (RBC) Count 3.65 mill/uL (4.20-5.40); White Blood Cell (WBC) Count 7.3 thou/uL (4.8-10.8)
[2021-09-30 14:00] LABS: Troponin I 0.632 ng/mL (< 0.028)
[2021-09-30] MEDS: HumaLOG 300 UNITS/3 ML VIAL SC PRN (17:35)
[2021-09-30] MEDS: Atorvastatin Calcium 40 MG TAB PO SCH (20:15)
[2021-09-30] MEDS: Famotidine 20 MG TAB PO SCH (20:15)
[2021-10-01 05:00] LABS: #Eosinphils 0.5 thou/uL (0.0-0.7); #Lymphocytes 3.6 thou/uL (1.20-3.40); #Monocytes 0.7 thou/uL (0.11-0.59); #Neutrophils 3.6 thou/uL (1.40-6.50); %Basophils 0.3 % (0.0-1.0); %Eosinophils 6.3 % (0.0-10.0); %Lymphocytes 42.6 % (21.0-51.0); %Monocytes 8.5 % (0.0-10.0); %Neutrophils 42.3 % (42.0-75.0); Hemoglobin 10.5 g/dL (12.0-16.0); Mean Corpuscular HGB CONC 32.3 g/dL (32.0-36.0); Mean Corpuscular Hemoglobin 27.5 pg (27.0-31.0); Mean Corpuscular Volume 85.1 fL (78.0-98.0); Mean Platelet Volume 8.6 fL (7.4-10.4); Platelet Count 274 thou/uL (130-400); RBC Distribution Width 12.4 % (11.5-14.5); Red Blood Cell (RBC) Count 3.81 mill/uL (4.20-5.40); White Blood Cell (WBC) Count 8.4 thou/uL (4.8-10.8)
[2021-10-01 05:03] LABS: Carbon Dioxide 20 mmol/L (23-31); Glucose 151 mg/dL (80-115)
[2021-10-01 05:23] LABS: Anion Gap 16 mmol/L (10-20); BUN (Urea Nitrogen) 31 mg/dL (9.8-20.1); Calc. Creatinine Clearance 54 mL/min (70-130); Calcium 10.2 mg/dL (7.8-10.44); Chloride 98 mmol/L (98-107); Potassium 3.9 mmol/L (3.5-5.1); Sodium 135 mmol/L (136-145)
[2021-10-01] MEDS: Carvedilol 6.25 MG TAB PO SCH (07:54)
[2021-10-01] MEDS: Empagliflozin 10 MG TAB PO SCH (07:55)
[2021-10-01] MEDS: Losartan 25 MG TAB PO SCH (07:55)
[2021-10-01] MEDS: Aspirin 81 mg Enteric Coated Tablet PO SCH (07:55)
[2021-10-01] MEDS: Ezetimibe 10 MG TAB PO SCH (07:55)
[2021-10-01] MEDS: Enoxaparin Sodium 100 MG/ML SYRINGE SC SCH (07:55)
[2021-10-01] MEDS ORDERED: Spironolactone 25 MG TAB PO SCH (08:00)
[2021-10-01] MEDS ORDERED: Torsemide 10 MG TAB PO SCH (09:00)
[2021-10-01 12:17] VITALS: BP 119/58; TEMP 97.7
== END 2021-10-01 14:15 | disposition home or self-care (01) | DRG 280 ==
LOC: ERS 13:47 → ERHOLD 15:38 → 2SW 20:07 → OBSVTOIN 09-29 09:32
PROVIDERS: ADMIT Internal Medicine; ATTEND Internal Medicine
PROC: 8E0ZXY6 Isolation (ICD-10-PCS; principal; 2021-09-28)
DX: I21.4 Non-ST elevation (NSTEMI) myocardial infarction (principal); U07.1 COVID-19; I50.22 Chronic systolic (congestive) heart failure; N17.9 Acute kidney failure, unspecified; Z68.41 Body mass index [BMI] 40.0-44.9, adult; E86.0 Dehydration; E11.9 Type 2 diabetes mellitus without complications; I11.0 Hypertensive heart disease with heart failure; I25.10 Atherosclerotic heart disease of native coronary artery without angina pectoris; E66.9 Obesity, unspecified; E78.5 Hyperlipidemia, unspecified; E78.00 Pure hypercholesterolemia, unspecified; Z91.018 Allergy to other foods; Z79.899 Other long term (current) drug therapy; Z79.84 Long term (current) use of oral hypoglycemic drugs; Z79.4 Long term (current) use of insulin; Z90.49 Acquired absence of other specified parts of digestive tract; Z90.710 Acquired absence of both cervix and uterus; Z95.810 Presence of automatic (implantable) cardiac defibrillator; Z87.891 Personal history of nicotine dependence
CPT/HCPCS: 36415; 36416; 71045; 80048; 80053; 82553; 84484; 85025; 85610; 85730; 93005; 93010; 96365; 96366; 96372; 96375; 96376; G0378; J1644; J1650; J1940; J2270

== ENCOUNTER 2022-02-23 20:20 | Inpatient (IN) | payer MEDICARE, MEDICAID ==
[2022-02-23] MEDS ORDERED: Morphine 2 MG/ML VIAL ONE (21:07)
[2022-02-23 21:16] LABS: #Eosinphils 0.3 thou/uL (0.0-0.7); #Lymphocytes 2.7 thou/uL (1.20-3.40); #Monocytes 0.6 thou/uL (0.11-0.59); %Basophils 0.3 % (0.0-1.0); %Eosinophils 3.4 % (0.0-10.0); %Lymphocytes 28.5 % (21.0-51.0); %Monocytes 5.9 % (0.0-10.0); %Neutrophils 61.9 % (42.0-75.0); Hemoglobin 11.4 g/dL (12.0-16.0); Mean Corpuscular HGB CONC 31.8 g/dL (32.0-36.0); Mean Corpuscular Volume 88.2 fL (78.0-98.0); Mean Platelet Volume 8.8 fL (7.4-10.4); Platelet Count 315 thou/uL (130-400); RBC Distribution Width 12.7 % (11.5-14.5); Red Blood Cell (RBC) Count 4.08 mill/uL (4.20-5.40); White Blood Cell (WBC) Count 9.6 thou/uL (4.8-10.8)
[2022-02-23 21:38] LABS: ALT (SGPT) 10 U/L (8-55); AST (SGOT) 14 U/L (5-34); Alkaline Phosphatase 173 U/L (40-110); Anion Gap 17 mmol/L (10-20); BUN (Urea Nitrogen) 59 mg/dL (9.8-20.1); Bilirubin, Total 0.2 mg/dL (0.2-1.2); Calc. Creatinine Clearance 0 mL/min (70-130); Calcium 10.1 mg/dL (7.8-10.44); Carbon Dioxide 27 mmol/L (23-31); Chloride 96 mmol/L (98-107); Globulin 4.3 g/dL (2.4-3.5); Glucose 231 mg/dL (80-115); Potassium 3.8 mmol/L (3.5-5.1); Protein, Total 8.3 g/dL (5.8-8.1); Sodium 136 mmol/L (136-145)
[2022-02-23 22:01] LABS: CKMB 2.7 ng/mL (0-6.6)
[2022-02-24 01:12] LABS: Troponin I 1.453 ng/mL (< 0.028)
[2022-02-24 01:50] VITALS: BMI 43.4
[2022-02-24] MEDS ORDERED: Nitroglycerin 0.4 MG TAB (25 Tab Bottle) SL PRN (02:56)
[2022-02-24] MEDS ORDERED: Morphine 4 MG/ML VIAL SLOW IVP PRN (02:57)
[2022-02-24] MEDS ORDERED: Enoxaparin Sodium 120 MG/0.8 ML SYRINGE SC SCH (03:15)
[2022-02-24] MEDS ORDERED: Dextrose 50% Abboject 50 ML SYRINGE SLOW IVP PRN (08:18)
[2022-02-24] MEDS ORDERED: HumaLOG 300 UNITS/3 ML VIAL SC PRN ×2 (08:18)
[2022-02-24] MEDS ORDERED: Dextrose 5% in Water 1,000 ML IV PRN (08:18)
[2022-02-24] MEDS: Torsemide 20 MG TAB PO SCH (09:08)
[2022-02-24] MEDS: Carvedilol 6.25 MG TAB PO SCH ×2 (09:08→20:05)
[2022-02-24] MEDS: Gabapentin 100 MG CAP PO SCH ×2 (09:09→20:05)
[2022-02-24] MEDS: Spironolactone 25 MG TAB PO SCH (09:09)
[2022-02-24] MEDS: Ferrous Sulfate 325 MG TAB PO SCH (09:09)
[2022-02-24] MEDS: Aspirin Chewable 81 MG TAB PO SCH (09:09)
[2022-02-24] MEDS: Empagliflozin 10 MG TAB PO SCH (09:09)
[2022-02-24] MEDS: Losartan 25 MG TAB PO SCH (09:09)
[2022-02-24] MEDS: Docusate 100 MG CAP PO SCH (09:10)
[2022-02-24] MEDS: Ezetimibe 10 MG TAB PO SCH (09:10)
[2022-02-24] MEDS ORDERED: Clopidogrel Bisulfate 300 MG TAB PO SCH (10:00)
[2022-02-24] MEDS ORDERED: Atorvastatin Calcium 40 MG TAB PO SCH (21:00)
[2022-02-25] MEDS ORDERED: Enoxaparin Sodium 120 MG/0.8 ML SYRINGE SC SCH (06:00)
[2022-02-25] MEDS ORDERED: Glimepiride 4 MG TAB PO SCH (08:00)
[2022-02-25 08:03] VITALS: TEMP 98.2
[2022-02-25] MEDS: Carvedilol 6.25 MG TAB PO SCH (08:04)
[2022-02-25] MEDS: Gabapentin 100 MG CAP PO SCH (08:04)
[2022-02-25] MEDS: Docusate 100 MG CAP PO SCH (08:04)
[2022-02-25] MEDS: Spironolactone 25 MG TAB PO SCH (08:05)
[2022-02-25] MEDS: Torsemide 20 MG TAB PO SCH (08:05)
[2022-02-25] MEDS: Empagliflozin 10 MG TAB PO SCH (08:05)
[2022-02-25] MEDS: Aspirin Chewable 81 MG TAB PO SCH (08:05)
[2022-02-25] MEDS: Losartan 25 MG TAB PO SCH (08:05)
[2022-02-25] MEDS: Ferrous Sulfate 325 MG TAB PO SCH (08:05)
[2022-02-25] MEDS: Ezetimibe 10 MG TAB PO SCH (08:05)
[2022-02-25] MEDS ORDERED: Clopidogrel Bisulfate 75 MG TAB PO SCH (09:00)
[2022-02-25 09:39] LABS: Anion Gap 17 mmol/L (10-20); BUN (Urea Nitrogen) 45 mg/dL (9.8-20.1); Calc. Creatinine Clearance 50 mL/min (70-130); Calcium 10.3 mg/dL (7.8-10.44); Carbon Dioxide 27 mmol/L (23-31); Chloride 95 mmol/L (98-107); Glucose 175 mg/dL (80-115); Potassium 3.8 mmol/L (3.5-5.1); Sodium 135 mmol/L (136-145)
[2022-02-25 09:59] LABS: Troponin I 2.878 ng/mL (< 0.028)
[2022-02-25 11:04] VITALS: BP 86/46
== END 2022-02-25 14:00 | disposition home or self-care (01) | DRG 281 ==
LOC: ERS 20:20 → 2SW 23:52 → OBSVTOIN 02-24 14:21
PROVIDERS: ADMIT Internal Medicine; ATTEND Internal Medicine
DX: I21.4 Non-ST elevation (NSTEMI) myocardial infarction (principal); I50.42 Chronic combined systolic (congestive) and diastolic (congestive) heart failure; I13.0 Hypertensive heart and chronic kidney disease with heart failure and stage 1 through stage 4 chronic kidney disease, or unspecified chronic kidney disease; N18.4 Chronic kidney disease, stage 4 (severe); Z68.41 Body mass index [BMI] 40.0-44.9, adult; Z20.822 Contact with and (suspected) exposure to COVID-19; E78.5 Hyperlipidemia, unspecified; E78.00 Pure hypercholesterolemia, unspecified; E66.9 Obesity, unspecified; E11.22 Type 2 diabetes mellitus with diabetic chronic kidney disease; I25.10 Atherosclerotic heart disease of native coronary artery without angina pectoris; M25.512 Pain in left shoulder; Z91.018 Allergy to other foods; Z79.51 Long term (current) use of inhaled steroids; Z79.4 Long term (current) use of insulin; Z79.899 Other long term (current) drug therapy; Z79.82 Long term (current) use of aspirin; Z87.891 Personal history of nicotine dependence
CPT/HCPCS: 36415; 36416; 71045; 80048; 80053; 82553; 83735; 84484; 85025; 93005; 94760; J1650; J2270; U0003; U0005

== ENCOUNTER 2022-04-10 02:24 | Inpatient (IN) | payer MEDICARE, MEDICAID ==
[2022-04-10] MEDS ORDERED: Adenosine 6 MG/2 ML VIAL ONE (02:27)
[2022-04-10] MEDS ORDERED: Nitroglycerin 100MG/250ML BOT 0 ML ONE (02:27)
[2022-04-10] MEDS ORDERED: Verapamil 5 MG/2 ML VIAL ONE (02:27)
[2022-04-10] MEDS ORDERED: Heparin 10,000 UNITS/ 10 ML VIAL ONE (02:27)
[2022-04-10] MEDS ORDERED: Lidocaine 1% (PF) 30 ML VIAL ONE (02:28)
[2022-04-10] MEDS ORDERED: Atropine Sulfate 1 mg/10 ml Syringe ONE (02:36)
[2022-04-10] MEDS ORDERED: NOREPINEPHRINE 8 MG/250 ML-D5W 250 ML ONE (02:39)
[2022-04-10] MEDS ORDERED: Norepinephrine 4 MG/4 ML VIAL ONE (02:39)
[2022-04-10 03:04] LABS: Hemoglobin 11.4 g/dL (12.0-16.0); Mean Corpuscular HGB CONC 33.2 g/dL (32.0-36.0); Mean Corpuscular Hemoglobin 29.2 pg (27.0-31.0); Mean Corpuscular Volume 87.9 fL (78.0-98.0); Mean Platelet Volume 9.2 fL (7.4-10.4); Platelet Count 360 thou/uL (130-400); White Blood Cell (WBC) Count 22.1 thou/uL (4.8-10.8)
[2022-04-10 03:10] LABS: INR-International Normal Ratio 1.2; Prothrombin Time 15.8 sec (12.0-14.7)
[2022-04-10 03:19] LABS: Band 4 % (5-11); Lymphocytes 41 % (21-51); MDiff Complete? YES; Monocytes 3 % (0-10); Neutrophil 49 % (42-75); Platelet Morphology Comment Appears Adequate; RBC Morphology Normal; Reactive Lymphocytes 2 % (0-10)
[2022-04-10 03:22] LABS: ALT (SGPT) 24 U/L (8-55); AST (SGOT) 82 U/L (5-34); Albumin 3.7 g/dL (3.4-4.8); Alkaline Phosphatase 138 U/L (40-110); Anion Gap 27 mmol/L (10-20); BUN (Urea Nitrogen) 40 mg/dL (9.8-20.1); Bilirubin, Total 0.8 mg/dL (0.2-1.2); Calc. Creatinine Clearance 0 mL/min (70-130); Calcium 9.7 mg/dL (7.8-10.44); Carbon Dioxide 16 mmol/L (23-31); Chloride 97 mmol/L (98-107); Estimated GFR 25; Globulin 3.5 g/dL (2.4-3.5); Glucose 321 mg/dL (80-115); Potassium 3.7 mmol/L (3.5-5.1); Protein, Total 7.2 g/dL (5.8-8.1); Sodium 136 mmol/L (136-145)
[2022-04-10] MEDS ORDERED: DOPamine 400 MG/D5W 250 ML 0 ML ONE (03:22)
[2022-04-10] MEDS ORDERED: Phenylephrine 10 MG/ML VIAL ONE ×2 (03:23→03:25)
[2022-04-10] MEDS ORDERED: Sodium Chloride 0.9% 1,000 ML IV SCH (04:15)
[2022-04-10 04:23] LABS: CKMB 23.9 ng/mL (0-6.6)
[2022-04-10] MEDS ORDERED: Heparin 25,000 units/D5W 500 ML ONE (04:27)
[2022-04-10 05:15] VITALS: BMI 43.5
[2022-04-10] MEDS ORDERED: Heparin 10,000 UNITS/ 10 ML VIAL SLOW IVP SCH (05:30)
[2022-04-10] MEDS ORDERED: Phenylephrine 40 MG/NS 250 ML 40 MG in Premix Bag 1 BAG IVPB SCH (05:30)
[2022-04-10] MEDS ORDERED: Heparin 25,000 units/D5W 500 ML IV SCH (05:30)
[2022-04-10] MEDS ORDERED: NOREPINEPHRINE 8 MG/250 ML-D5W 250 ML IVPB SCH (05:30)
[2022-04-10 06:24] LABS: SARS-CoV-2 NAA Rapid Test Not Detected (NotDetected)
[2022-04-10] MEDS: Ondansetron PF 4 MG/2 ML Vial IVP PRN ×2 (06:37→17:14)
[2022-04-10 07:43] LABS: Troponin I 19.602 ng/mL (< 0.028)
[2022-04-10] MEDS: Aspirin Chewable 81 MG TAB PO SCH (08:00)
[2022-04-10] MEDS: Clopidogrel Bisulfate 75 MG TAB PO SCH (08:00)
[2022-04-10] MEDS ORDERED: Dextrose 50% Abboject 50 ML SYRINGE SLOW IVP PRN (08:13)
[2022-04-10] MEDS ORDERED: Dextrose 5% in Water 1,000 ML IV PRN (08:13)
[2022-04-10] MEDS ORDERED: Empagliflozin 10 MG TAB PO SCH (09:00)
[2022-04-10] MEDS ORDERED: Famotidine 20 MG TAB PO SCH (09:00)
[2022-04-10] MEDS ORDERED: Fentanyl 100 MCG/2 ML VIAL SLOW IVP PRN (10:13)
[2022-04-10] MEDS: ALPRAZolam 0.5 MG TAB PO PRN (19:47)
[2022-04-11] MEDS: Ondansetron PF 4 MG/2 ML Vial IVP PRN (00:45)
[2022-04-11] MEDS: Acetaminophen 325 MG TAB PO PRN (00:46)
[2022-04-11 05:19] LABS: #Eosinphils 0.1 thou/uL (0.0-0.7); #Lymphocytes 2.6 thou/uL (1.20-3.40); #Monocytes 0.7 thou/uL (0.11-0.59); #Neutrophils 8.7 thou/uL (1.40-6.50); %Basophils 0.2 % (0.0-1.0); %Eosinophils 0.5 % (0.0-10.0); %Lymphocytes 21.2 % (21.0-51.0); %Monocytes 5.9 % (0.0-10.0); %Neutrophils 72.2 % (42.0-75.0); Hemoglobin 9.5 g/dL (12.0-16.0); Mean Corpuscular HGB CONC 32.5 g/dL (32.0-36.0); Mean Corpuscular Hemoglobin 28.4 pg (27.0-31.0); Mean Corpuscular Volume 87.4 fL (78.0-98.0); Mean Platelet Volume 9.2 fL (7.4-10.4); Platelet Count 257 thou/uL (130-400); RBC Distribution Width 12.8 % (11.5-14.5); Red Blood Cell (RBC) Count 3.34 mill/uL (4.20-5.40); White Blood Cell (WBC) Count 12.1 thou/uL (4.8-10.8)
[2022-04-11 05:30] LABS: ALT (SGPT) 827 U/L (8-55); AST (SGOT) 725 U/L (5-34); Albumin 3.6 g/dL (3.4-4.8); Alkaline Phosphatase 153 U/L (40-110); Anion Gap 18 mmol/L (10-20); BUN (Urea Nitrogen) 43 mg/dL (9.8-20.1); Bilirubin, Total 0.9 mg/dL (0.2-1.2); Calc. Creatinine Clearance 39 mL/min (70-130); Calcium 9.4 mg/dL (7.8-10.44); Carbon Dioxide 25 mmol/L (23-31); Chloride 96 mmol/L (98-107); Estimated GFR 22; Globulin 3.7 g/dL (2.4-3.5); Glucose 173 mg/dL (80-115); Potassium 3.3 mmol/L (3.5-5.1); Protein, Total 7.3 g/dL (5.8-8.1); Sodium 136 mmol/L (136-145)
[2022-04-11] MEDS: Clopidogrel Bisulfate 75 MG TAB PO SCH (08:22)
[2022-04-11] MEDS: Aspirin Chewable 81 MG TAB PO SCH (08:22)
[2022-04-11] MEDS ORDERED: Famotidine 20 MG TAB PO SCH (09:00)
[2022-04-11] MEDS ORDERED: Pantoprazole 40 MG VIAL IVP SCH (13:30)
[2022-04-11] MEDS ORDERED: Glycerin Adult Supp. (24 ct jar) PR SCH (13:30)
[2022-04-11] MEDS: Bisacodyl 5 MG TAB PO PRN (14:01)
[2022-04-11] MEDS: HumaLOG 300 UNITS/3 ML VIAL SC PRN (14:06)
[2022-04-12] MEDS: Ondansetron PF 4 MG/2 ML Vial IVP PRN (03:40)
[2022-04-12 05:54] LABS: ALT (SGPT) 861 U/L (8-55); AST (SGOT) 539 U/L (5-34); Albumin 3.6 g/dL (3.4-4.8); Alkaline Phosphatase 178 U/L (40-110); Anion Gap 23 mmol/L (10-20); BUN (Urea Nitrogen) 48 mg/dL (9.8-20.1); Bilirubin, Total 0.8 mg/dL (0.2-1.2); Calc. Creatinine Clearance 40 mL/min (70-130); Calcium 9.4 mg/dL (7.8-10.44); Carbon Dioxide 20 mmol/L (23-31); Chloride 94 mmol/L (98-107); Estimated GFR 23; Globulin 3.8 g/dL (2.4-3.5); Glucose 199 mg/dL (80-115); Potassium 3.7 mmol/L (3.5-5.1); Protein, Total 7.4 g/dL (5.8-8.1); Sodium 133 mmol/L (136-145)
[2022-04-12] MEDS: HumaLOG 300 UNITS/3 ML VIAL SC PRN ×3 (06:06→23:32)
[2022-04-12] MEDS: Aspirin Chewable 81 MG TAB PO SCH (10:27)
[2022-04-12] MEDS: Pantoprazole 40 MG VIAL IVP SCH (10:27)
[2022-04-12] MEDS: Clopidogrel Bisulfate 75 MG TAB PO SCH (10:28)
[2022-04-12] MEDS: Amiodarone 450 MG in Dextrose 5% in Water 250 ML IVPB SCH (15:19)
[2022-04-12] MEDS: ALPRAZolam 0.5 MG TAB PO PRN (20:25)
[2022-04-12] MEDS: Melatonin 3 MG TAB PO PRN (23:21)
[2022-04-12] MEDS: Acetaminophen 325 MG TAB PO PRN (23:21)
[2022-04-13] MEDS: Amiodarone 450 MG in Dextrose 5% in Water 250 ML IVPB SCH ×2 (00:08→17:07)
[2022-04-13] MEDS: Aspirin Chewable 81 MG TAB PO SCH (08:08)
[2022-04-13] MEDS: Pantoprazole 40 MG VIAL IVP SCH (08:09)
[2022-04-13] MEDS: HumaLOG 300 UNITS/3 ML VIAL SC PRN ×3 (08:09→18:06)
[2022-04-13] MEDS: Clopidogrel Bisulfate 75 MG TAB PO SCH (08:10)
[2022-04-13] MEDS ORDERED: Dextrose 5% in Water 1,000 ML IV PRN (08:53)
[2022-04-13] MEDS ORDERED: Dextrose 50% Abboject 50 ML SYRINGE SLOW IVP PRN (08:53)
[2022-04-13] MEDS: Bisacodyl 5 MG TAB PO PRN (15:12)
[2022-04-13] MEDS ORDERED: Glycerin Adult Supp. (24 ct jar) PR PRN (15:33)
[2022-04-13] MEDS: Acetaminophen 325 MG TAB PO PRN (20:40)
[2022-04-13] MEDS: Melatonin 3 MG TAB PO PRN (20:41)
[2022-04-13] MEDS ORDERED: Amiodarone 200 MG TAB PO SCH (21:00)
[2022-04-14] MEDS: HumaLOG 300 UNITS/3 ML VIAL SC PRN ×4 (06:55→20:50)
[2022-04-14] MEDS ORDERED: Amiodarone 200 MG TAB PO SCH (09:00)
[2022-04-14] MEDS: Amiodarone 450 MG in Dextrose 5% in Water 250 ML IVPB SCH (09:19)
[2022-04-14] MEDS: Aspirin Chewable 81 MG TAB PO SCH (09:54)
[2022-04-14] MEDS: Clopidogrel Bisulfate 75 MG TAB PO SCH (09:55)
[2022-04-14] MEDS: Amiodarone 200 MG TAB PO SCH ×3 (09:56→20:50)
[2022-04-15] MEDS: Amiodarone 450 MG in Dextrose 5% in Water 250 ML IVPB SCH (00:44)
[2022-04-15] MEDS: Ondansetron PF 4 MG/2 ML Vial IVP PRN (05:53)
[2022-04-15] MEDS: HumaLOG 300 UNITS/3 ML VIAL SC PRN ×3 (06:20→17:30)
[2022-04-15] MEDS: Amiodarone 200 MG TAB PO SCH ×3 (08:36→20:29)
[2022-04-15] MEDS: Aspirin Chewable 81 MG TAB PO SCH (08:36)
[2022-04-15] MEDS: Clopidogrel Bisulfate 75 MG TAB PO SCH (08:36)
[2022-04-15] MEDS: Acetaminophen 325 MG TAB PO PRN (13:44)
[2022-04-16] MEDS ORDERED: Ondansetron ODT 4 MG TAB SL PRN (03:09)
[2022-04-16] MEDS: Polyethylene Glycol 3350 17 GM Packet PO SCH ×2 (03:21→03:41)
[2022-04-16] MEDS: HumaLOG 300 UNITS/3 ML VIAL SC PRN ×2 (05:59→17:19)
[2022-04-16] MEDS ORDERED: Polyethylene Glycol 3350 17 GM Packet PO SCH (09:00)
[2022-04-16] MEDS: Aspirin Chewable 81 MG TAB PO SCH (09:28)
[2022-04-16] MEDS: Clopidogrel Bisulfate 75 MG TAB PO SCH (09:29)
[2022-04-16] MEDS: Amiodarone 200 MG TAB PO SCH ×2 (09:29→16:14)
[2022-04-16] MEDS ORDERED: Morphine 2 MG/ML VIAL SLOW IVP PRN ×2 (11:27→13:37)
[2022-04-16] MEDS ORDERED: Morphine 10 MG/0.5 ML ORAL SYRINGE SL PRN (11:28)
[2022-04-16] MEDS ORDERED: Amiodarone 150 MG in Dextrose 5% in Water 100 ML IVPB SCH (11:45)
[2022-04-16] MEDS ORDERED: Amiodarone 450 MG, Admixture Fee 1 EACH in Dextrose 5% in Water 250 ML IVPB SCH (11:45)
[2022-04-16] MEDS: Ondansetron PF 4 MG/2 ML Vial IVP PRN (12:25)
[2022-04-16] MEDS ORDERED: Scopolamine 1.5 mg/72 hour Patch TOP PRN (13:34)
[2022-04-16] MEDS ORDERED: Hyoscyamine Sulfate SL 0.125 mg Tablet SL PRN (13:35)
[2022-04-16] MEDS ORDERED: Haloperidol Lactate 5 MG/ML VIAL SLOW IVP PRN (13:36)
[2022-04-16 18:41] VITALS: BP 112/72; TEMP 96.5
== END 2022-04-16 19:10 | disposition hospice, inpatient (51) | DRG 280 ==
LOC: ERS 02:24 → SDC/OP 02:50 → CCU 03:18 → NEURO 21:58
PROVIDERS: ADMIT Hospitalist; ATTEND Hospitalist
PROC: 4A023N7 Measurement of Cardiac Sampling and Pressure, Left Heart, Percutaneous Approach (ICD-10-PCS; principal; 2022-04-10)
PROC: B2131ZZ Fluoroscopy of Multiple Coronary Artery Bypass Grafts using Low Osmolar Contrast (ICD-10-PCS; 2022-04-10)
PROC: B2151ZZ Fluoroscopy of Left Heart using Low Osmolar Contrast (ICD-10-PCS; 2022-04-10)
DX: I21.19 ST elevation (STEMI) myocardial infarction involving other coronary artery of inferior wall (principal); R57.0 Cardiogenic shock; K72.00 Acute and subacute hepatic failure without coma; I44.2 Atrioventricular block, complete; I13.0 Hypertensive heart and chronic kidney disease with heart failure and stage 1 through stage 4 chronic kidney disease, or unspecified chronic kidney disease; I50.42 Chronic combined systolic (congestive) and diastolic (congestive) heart failure; Z68.42 Body mass index [BMI] 45.0-49.9, adult; I47.2 Ventricular tachycardia; Z20.822 Contact with and (suspected) exposure to COVID-19; Z66 Do not resuscitate; Z51.5 Encounter for palliative care; E78.00 Pure hypercholesterolemia, unspecified; I25.10 Atherosclerotic heart disease of native coronary artery without angina pectoris; I25.5 Ischemic cardiomyopathy; E66.9 Obesity, unspecified; N18.30 Chronic kidney disease, stage 3 unspecified; Z79.82 Long term (current) use of aspirin; Z91.018 Allergy to other foods; Z95.810 Presence of automatic (implantable) cardiac defibrillator; Z79.84 Long term (current) use of oral hypoglycemic drugs; Z79.4 Long term (current) use of insulin; Z79.899 Other long term (current) drug therapy; Z79.01 Long term (current) use of anticoagulants; Z90.710 Acquired absence of both cervix and uterus; Z87.891 Personal history of nicotine dependence
CPT/HCPCS: 36415; 36416; 36556; 80053; 82553; 84484; 85025; 85347; 85610; 85730; 93005; 93010; 93306; 93458; 94760; C1751; C1769; C1894; C9113; J0153; J0282; J0461; J1265; J1644; J1815; J2001; J2270; J2370; J2405; J3010; J7050; J7070; Q0162; U0002

== ENCOUNTER 2022-04-16 17:26 | Inpatient (IN) | payer MEDICAID, MEDICARE, OTHER ==
[2022-04-16] MEDS ORDERED: Scopolamine 1.5 mg/72 hour Patch TOP SCH (18:30)
[2022-04-16] MEDS ORDERED: Morphine 2 MG/ML VIAL SLOW IVP PRN (18:35)
[2022-04-16] MEDS ORDERED: Haloperidol Lactate 5 MG/ML VIAL SLOW IVP PRN (18:36)
[2022-04-16] MEDS ORDERED: Hyoscyamine Sulfate SL 0.125 mg Tablet SL PRN (18:37)
[2022-04-16] MEDS ORDERED: Scopolamine 1.5 mg/72 hour Patch TOP PRN (18:38)
[2022-04-16 18:39] VITALS: BMI 46.0
[2022-04-16] MEDS ORDERED: Acetaminophen 650 MG Suppository PR PRN (19:15)
[2022-04-16] MEDS ORDERED: Acetaminophen 325 MG TAB PO PRN (19:15)
[2022-04-16] MEDS ORDERED: Loperamide HCl 2 MG CAP PO PRN (19:15)
[2022-04-16] MEDS ORDERED: HumaLOG 300 UNITS/3 ML VIAL SC PRN ×2 (19:15)
[2022-04-16] MEDS ORDERED: Dextrose 5% in Water 1,000 ML IV PRN (19:15)
[2022-04-16] MEDS ORDERED: Promethazine HCl 25 MG SUPP PR PRN (19:15)
[2022-04-16] MEDS ORDERED: Dextrose 50% Abboject 50 ML SYRINGE IVP PRN (19:15)
[2022-04-16] MEDS ORDERED: Lorazepam (BATCHED) 2 MG/ML SYR SLOW IVP PRN (19:17)
[2022-04-16] MEDS ORDERED: ALPRAZolam 0.5 MG TAB PO PRN (19:19)
[2022-04-16] MEDS ORDERED: Melatonin 3 MG TAB PO PRN (19:20)
[2022-04-16] MEDS ORDERED: Amiodarone 200 MG TAB PO SCH (21:00)
[2022-04-16 21:16] VITALS: BP 107/59; TEMP 97.4
[2022-04-17] MEDS ORDERED: Clopidogrel Bisulfate 75 MG TAB PO SCH (09:00)
[2022-04-17] MEDS ORDERED: Polyethylene Glycol 3350 17 GM Packet PO SCH (09:00)
[2022-04-17] MEDS ORDERED: Aspirin 81 mg Enteric Coated Tablet PO SCH (09:00)
== END 2022-04-17 03:00 | disposition expired | DRG 951 ==
LOC: 2NO 17:26 → UNDOADMIN 17:26 → NEURO 19:31
PROVIDERS: ADMIT Family Medicine; ATTEND Family Medicine
DX: Z51.5 Encounter for palliative care (principal); I21.9 Acute myocardial infarction, unspecified; I50.21 Acute systolic (congestive) heart failure; I47.2 Ventricular tachycardia; N18.4 Chronic kidney disease, stage 4 (severe); Z66 Do not resuscitate; I25.10 Atherosclerotic heart disease of native coronary artery without angina pectoris; E11.22 Type 2 diabetes mellitus with diabetic chronic kidney disease; I49.01 Ventricular fibrillation; D63.1 Anemia in chronic kidney disease; Z95.810 Presence of automatic (implantable) cardiac defibrillator; Z79.899 Other long term (current) drug therapy; Z79.82 Long term (current) use of aspirin; Z79.4 Long term (current) use of insulin
CPT/HCPCS: 36416